=== PATIENT | male | born 1990 | race Caucasian/White ===

== ENCOUNTER 2016-05-23 17:44 | Emergency (ER) | payer OTHER ==
[2016-05-23] MEDS ORDERED: GASTROGRAFIN SOLUTION 30ML (Q9963) As Ordered ONE (18:38)
[2016-05-23 18:47] LABS: BASO % 0.4 % (0.0-1.0); EOS # 0.1 K/mm3 (0.0-0.50); EOS % 1.2 % (0.0-3.0); LARGE UNSTAINED CELL # 0.1 K/mm3 (0.0-0.4); LARGE UNSTAINED CELL % 1.6 % (0.0-4.0); LYMPH # 1.2 K/mm3 (1.5-6.5); MEAN CORPUSCULAR HEMOGLOBIN 27.8 pg (27.0-33.0); MEAN CORPUSCULAR HGB CONC 32.2 g/dl (32.0-36.5); MEAN CORPUSCULAR VOLUME 86.2 fl (80.0-96.0); MONO # 0.2 K/mm3 (0.0-0.8); MONO % 3.2 % (0.0-5.0); NEUTROPHILS # 5.6 K/mm3 (1.8-7.7); NEUTROPHILS % 77.6 % (36.0-66.0); PLATELET COUNT, AUTOMATED 676 k/mm3 (150-450); RED CELL DISTRIBUTION WIDTH 14.2 % (11.5-14.5); WHITE BLOOD COUNT 7.2 K/mm3 (4.0-10.0)
[2016-05-23 19:08] LABS: ANION GAP 9 MEQ/L (8-16); BLOOD UREA NITROGEN 11 MG/DL (7-18); CALCIUM LEVEL 9.1 MG/DL (8.5-10.1); CARBON DIOXIDE LEVEL 31 MEQ/L (21-32); CHLORIDE LEVEL 101 MEQ/L (98-107); CREATININE FOR GFR 0.86 MG/DL (0.70-1.30); GLOMERULAR FILTRATION RATE > 60.0 (>60); GLUCOSE, FASTING 92 MG/DL (70-105); POTASSIUM SERUM 4.3 MEQ/L (3.5-5.1); SODIUM LEVEL 141 MEQ/L (136-145)
[2016-05-23] MEDS ORDERED: ISOVUE-370 76% 100ML VIAL (Q9967) As Ordered ONE (20:25)
--- NOTE | 2016-05-23 21:00 | REPUSA ---
CT of the abdomen and pelvis with contrast Clinical statement: wound dehiscience. Technique: Multiple axial CT images were obtained from the base of the lungs through the floor of the pelvis utilizing 5 mm axial slices after administration of oral and nonionic intravenous contrast. C oronal and sagittal reconstructions were also obtained. No comparison is available. Findings: Chest: The visualized lung bases are clear. Abdomen: The liver, spleen, pancreas, kidneys, gallbladder, and adrenal glands are unremarkable. The aorta is within normal limits. There is no evidence of abdominal lymphadenopathy or ascites. The midl ine surgical wound at the region of the umbilicus is noted with a tiny amount of fluid. No evidence o f the dehiscience is appreciated. No discrete mass or loculated fluid collection is identified. There is a tiny area of low attenuation within the midline rectal sheath in the lower abdomen measuring up to 3.7 x 1.1 cm, likely representing postsurgical hematoma. Pelvis: Moderate amount of stool fills the colon.The bowel is otherwise unremarkable, with no obstruc tive or inflammatory changes. The appendix is normal. The urinary bladder is within normal limits. Th e other pelvic structures appear grossly intact. There is no evidence of pelvic lymphadenopathy or as cites. Bones: There are no suspicious osseous abnormalities seen. Impression: 1. Normal postsurgical changes demonstrated in the midline of the abdomen. Small postsurgical low att enuation collections are consistent with normal hematomas. No evidence of dehiscience. No evidence of abscess. Surgical clips are seen anteriorly. 2. Mild constipation. No obstructive or inflammatory bowel changes.
[2016-05-23] MEDS ORDERED: CEPHALEXIN 500 MG CAP As Ordered ONE (21:49)
--- NOTE | 2016-05-23 22:12 | EDDOCDS ---
Physician Documentation [facility] Name: Malcolm Perez Age: 25 yrs Sex: Male : 1990 Arrival Date: 05/23/2016 Time: 17:44 Bed I5 / M5 Private MD: Andrey Molina [facility] Disposition: 05/23/16 22:00 Discharged to Home/Self Care. Impression: Disruption of wound, unspecified - STAPLE LINE DEHISCENCE, Cellulitis, unspecified. - Condition is Stable. - Discharge Instructions: Cellulitis, Wound Dehiscence. - Prescriptions for Keflex 500 mg Oral Capsule - take 1 capsule by ORAL route every 6 hours for 10 days; 40 capsule. - Medication Reconciliation, Local Pharmacy Hours form. - Follow up: Private Physician; When: Tomorrow; Reason: Recheck today's complaints, Continuance of care. - Problem is new. - Symptoms have improved. - Notes: FOLLOW UP WITH DR UGALDE TOMORROW PREVIOUSLY INSTRUCTED, USE KELFEX INSTRUCTED, RETURN TO THE ER IF THE SYMPTOMS WORSE OR BECOME CONCERNING Historical: - Allergies: Lortab; - Home Meds: 1. morphine 30 mg Oral cap as needed pt has been using approx 2 x/day for Severe Pain (Last dose: 05/23/2016 17:15) 2. Colace 100 mg oral cap once daily (Last dose: 05/23/2016) 3. ibuprofen 400 mg Oral tab (Last dose: 05/22/2016) - PMHx: colon CA; - PSHx: ostomy reversal; colectomy?; - Social history: Smoking status: Patient states was never smoker of tobacco. Patient/guardian denies using alcohol, street drugs, No barriers to communication noted, The patient speaks fluent Iranian, Speaks appropriately for age. - Family history: Not pertinent. - : The pt / caregiver states he / she is not on anticoagulants. Home medication list is obtained from the patient. - Exposure Risk Screening:: None identified. Vital Signs: 05/23 17:49 BP 158 / 73 RA Sitting (auto/reg); Pulse 89; Resp 18; Temp 98.2; Pulse Ox 97% on R/A; jrd Weight 79.83 kg / 176 lbs (R); Height 5 ft. 11 in. (180.34 cm) (R); Pain 3/10; 22:10 BP 125 / 78; Pulse 78; Resp 18; Temp 98(T); Pulse Ox 99% on R/A; Pain 0/10; rs3 17:49 Body Mass Index 24.55 (79.83 kg, 180.34 cm) jrd MDM: 18:27 -Blood Culture (Adults Only), peripheral from different site, or from device/port/PICC ck7 etc. if present ordered. 18:27 IV Saline Lock ordered. ck7 18:27 NS 0.9% 1000 ml IV at bolus once ordered. ck7 18:28 CBC with Diff Ordered. EDMS 18:28 MED Profile Ordered. EDMS 18:28 -Blood Culture Ordered. EDMS 18:28 Wound Culture - All Other Sources Ordered. EDMS 18:28 CT ABD & PELVIS: IV and Oral Contrast Ordered. EDMS 18:28 -Blood Culture (Adults Only), peripheral from different site, or from device/port/PICC ar3 etc. if present complete. 18:30 BLOOD CULTURES Ordered. EDMS 18:37 Diatrizoate Meglumine & Sodium Liquid 10 ml PO once; mix in 290cc of water, 1st cup \T\ rs3 6.50 pm 2nd cup \T\7.20pm ordered. 19:45 Financial registration complete. zo 20:10 [facility] Payment Agreement was scanned into [employer] and attached to record. zo 21:14 CBC with Diff Reviewed. ck7 21:14 MED Profile Reviewed. ck7 21:41 CT ABD & PELVIS: IV and Oral Contrast Reviewed. ck7 21:41 Cephalexin 500 mg PO once ordered. ck7 21:42 Dressing ordered. ck7 Administered Medications: 18:43 Drug: NS 0.9% 1000 ml [sodium chloride 0.9 % intravenous solution] Route: IV; Rate: rs3 bolus; Site: left antecubital; 18:43 Drug: Diatrizoate Meglumine & Sodium 10 ml [diatrizoate meglumine and diat.sodium 66 rs3 %-10 % oral solution (10 mL)] Route: PO; 21:56 Drug: Cephalexin 500 mg [cephalexin 250 mg capsule (2 caps)] Route: PO; rs3 Signatures: Dispatcher [employer] EDMS Chao Alvarez Rosemary, RN RN rs3 Urszula Méndez PCA BARREL RIB MATTING MACHINE OPERATOR ar3 Julio C Steel, RPA-C RPA-Cck7 Shirley Macedo, RN RN ttb The chart was reviewed and I authenticate all verbal orders and agree with the evaluation and treatment provided.Attachments: 20:10 [facility] Payment Agreement zo MTDD
--- NOTE | 2016-05-23 22:12 | EDDOCDS ---
Nurse's Notes [facility] Name: Malcolm Perez Age: 25 yrs Sex: Male : 1990 Arrival Date: 05/23/2016 Time: 17:44 Bed I5 / M5 Private MD: Andrey Molina [facility] Diagnosis: Disruption of wound, unspecified-STAPLE LINE DEHISCENCE;Cellulitis, unspecified Presentation: 05/23 17:52 Presenting complaint: Patient states: abd surgery at [facility] on 05/06 -- discharged from [facility] approx 2 weeks ago -- 1st f/u tomorrow in office. Pt concerned with the appearance of lloyd at this time. States there is discharge. Adult Sepsis Screening: The patient does not have new or worsening altered mentation. Patient's respiratory rate is less than 22. Systolic blood pressure is greater than 100. Patient has a qSOFA score of 0- Negative Sepsis Screen. Suicide/Homicide risk assessment- the patient denies having any suicidal and/or homicidal ideations and does not present with any other emotional, behavioral or mental health complaints. 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 Transition of care: patient was not received from another setting of care. 17:52 Acuity: BRUNILDA Level 3 ttb 17:52 Method Of Arrival: Walkin/Carried/Asstd ttb 18:05 Presenting complaint: upon inspection, small area noted distal to umbilicus with fluid ttb filled sac. Approx 1cm. Fluid appears clear mainly. Surrounding tissue appears healthy, no erythema noted. Triage Assessment: 17:58 General: Appears in no apparent distress, well nourished, well groomed, Behavior is ttb appropriate for age, cooperative, flat, pleasant, quiet. Pain: Location: abd 06/04. HIV screening NA for this visit Offered previously. Neurological: Level of Consciousness is awake, alert. Cardiovascular: Chest pain is denied. Respiratory: No deficits noted. Airway is patent Respiratory effort is even, unlabored. GI: other pt states large surgical incision to abd Reports tolerance of food, tolerance of fluids, Denies vomiting. Derm: Skin is normal. Injury Description: surgical site. Historical: - Allergies: Lortab; - Home Meds: 1. morphine 30 mg Oral cap as needed pt has been using approx 2 x/day for Severe Pain (Last dose: 05/23/2016 17:15) 2. Colace 100 mg oral cap once daily (Last dose: 05/23/2016) 3. ibuprofen 400 mg Oral tab (Last dose: 05/22/2016) - PMHx: colon CA; - PSHx: ostomy reversal; colectomy?; - Social history: Smoking status: Patient states was never smoker of tobacco. Patient/guardian denies using alcohol, street drugs, No barriers to communication noted, The patient speaks fluent North Korean, Speaks appropriately for age. - Family history: Not pertinent. - : The pt / caregiver states he / she is not on anticoagulants. Home medication list is obtained from the patient. - Exposure Risk Screening:: None identified. Screenin:52 Screening information is obtained from the patient. Fall risk: No risks identified. dy Assistance ADL's: requires no assistance with activities of daily living. Abuse/DV Screen: The patient / caregiver reports he/she is: not in a situation that causes fear, pain or injury. Nutritional screening: No deficits noted. Advance Directives: Currently, there is no health care proxy. home support is adequate. Assessment: 18:50 General: Appears in no apparent distress, Behavior is appropriate for age, cooperative. dy Pain: Location: abdomen Pain currently is 3 out of 10 on a pain scale. Neurological: No deficits noted. Respiratory: Airway is patent Respiratory effort is even, unlabored. GI: Abdomen is flat, non- distended midline surgical scar stapled full length of abdomen into suprapubic area. purulent drainage noted just below umbilicus. left lower 7.5-10 cm stapled surgical wound without redness or drainage noted. 19:58 General: Appears in no apparent distress, Behavior is appropriate for age, cooperative, rs3 sits up on stretcher texting on his phone. denies of acute distress/pain. waiting for CT scan. completed oral contrast. tolerating well. IVF NS bolus infusing. 20:44 General: Appears in no apparent distress, Behavior is appropriate for age, cooperative, rs3 patient returned from CT. tolerated procedure well. waiting on test results. . 21:56 General: Appears in no apparent distress, resting comfortable. denies of pain/distress. rs3 friend at bedside. wet dressing applied. . 22:09 Reassessment: Patient appears in no apparent distress at this time. Patient denies pain rs3 at this time. Patient states feeling better. Patient states symptoms have improved. Vital Signs: 17:49 BP 158 / 73 RA Sitting (auto/reg); Pulse 89; Resp 18; Temp 98.2; Pulse Ox 97% on R/A; jrd Weight 79.83 kg (R); Height 5 ft. 11 in. (180.34 cm) (R); Pain 3/10; 22:10 BP 125 / 78; Pulse 78; Resp 18; Temp 98(T); Pulse Ox 99% on R/A; Pain 0/10; rs3 17:49 Body Mass Index 24.55 (79.83 kg, 180.34 cm) [facility] Vitals: 17:49 Log In Time: May 23, 2016 at 17:44. [facility] ED Course: 17:46 Patient visited by Luis Manuel Rod PCA. jrd 17:46 Patient moved to Waiting jrd 17:48 [place], [facility] is Private Physician. jrd 17:50 Patient visited by Luis Manuel Rod PCA. jrd 17:50 Patient moved to Pre RCE jrd 17:54 Triage Initiated ttb 17:59 Patient moved to Triage 3 ttb 18:15 Julio C Steel [facility] ck7 18:15 Arturo Lowe MD is Attending Physician. ck7 18:15 Patient visited by Julio C Steel RPA-C. ck7 18:29 Patient moved to I5 / M5 ar3 18:41 The patient / caregiver is instructed regarding the plan of care and ED course. Patient dy has correct armband on for positive identification. Placed in gown. Bed in low position. Call light in reach. Side rails up X 1. 18:41 Wound Culture - All Other Sources Sent. dy 18:41 -Blood Culture Sent. dy 18:41 MED Profile Sent. dy 18:41 CBC with Diff Sent. dy 18:41 Inserted saline lock: 20 gauge in left antecubital area and blood collected. The dy patient tolerated the procedure well. Labs/Blood culture drawn Wound culture sent to lab. 18:44 BLOOD CULTURES Sent. jlm 18:47 Patient visited by Gloria Cope, Leather Grainer. jl 19:23 Patient visited by Julio C Steel RPA-C. ck7 19:57 Patient visited by Julio C Steel RPA-C. ck7 20:10 [facility] Payment Agreement was scanned into [employer] and attached to record. zo 20:44 Patient visited by Nelsy Diamond RN. rs3 21:14 Patient visited by Julio C Steel RPA-C. ck7 21:25 CT ABD & PELVIS: IV and Oral Contrast Returned. EDMS 22:00 Patient visited by Nelsy Diamond RN. rs3 22:10 Discontinued lock bleeding controlled, pressure dressing applied, No redness/swelling rs3 at site. No procedures done that require assistance. Administered Medications: 18:43 Drug: NS 0.9% 1000 ml [sodium chloride 0.9 % intravenous solution] Route: IV; Rate: rs3 bolus; Site: left antecubital; 18:43 Drug: Diatrizoate Meglumine & Sodium 10 ml [diatrizoate meglumine and diat.sodium 66 rs3 %-10 % oral solution (10 mL)] Route: PO; 21:56 Drug: Cephalexin 500 mg [cephalexin 250 mg capsule (2 caps)] Route: PO; rs3 Order Results: Lab Order: CBC with Diff; SPEC'M 05/23/16 18:32 Test: WHITE BLOOD COUNT; Value: 7.2; Range: 4.0-10.0; Units: K/mm3; Status: F Test: RED BLOOD COUNT; Value: 4.53; Range: 4.30-6.10; Units: M/mm3; Status: F Test: HEMOGLOBIN; Value: 12.6; Range: 14.0-18.0; Abnormal: Below low normal; Units: g/dl; Status: F Test: HEMATOCRIT; Value: 39.1; Range: 42.0-52.0; Abnormal: Below low normal; Units: %; Status: F Test: MEAN CORPUSCULAR VOLUME; Value: 86.2; Range: 80.0-96.0; Units: fl; Status: F Test: MEAN CORPUSCULAR HEMOGLOBIN; Value: 27.8; Range: 27.0-33.0; Units: pg; Status: F Test: MEAN CORPUSCULAR HGB CONC; Value: 32.2; Range: 32.0-36.5; Units: g/dl; Status: F Test: RED CELL DISTRIBUTION WIDTH; Value: 14.2; Range: 11.5-14.5; Units: %; Status: F Test: PLATELET COUNT, AUTOMATED; Value: 676; Range: 150-450; Abnormal: Above high normal; Units: k/mm3; Status: F Test: NEUTROPHILS %; Value: 77.6; Range: 36.0-66.0; Abnormal: Above high normal; Units: %; Status: F Test: LYMPH %; Value: 16.0; Range: 24.0-44.0; Abnormal: Below low normal; Units: %; Status: F Test: MONO %; Value: 3.2; Range: 0.0-5.0; Units: %; Status: F Test: EOS %; Value: 1.2; Range: 0.0-3.0; Units: %; Status: F Test: BASO %; Value: 0.4; Range: 0.0-1.0; Units: %; Status: F Test: LARGE UNSTAINED CELL %; Value: 1.6; Range: 0.0-4.0; Units: %; Status: F Test: NEUTROPHILS #; Value: 5.6; Range: 1.8-7.7; Units: K/mm3; Status: F Test: LYMPH #; Value: 1.2; Range: 1.5-6.5; Abnormal: Below low normal; Units: K/mm3; Status: F Test: MONO #; Value: 0.2; Range: 0.0-0.8; Units: K/mm3; Status: F Test: EOS #; Value: 0.1; Range: 0.0-0.50; Units: K/mm3; Status: F Test: BASO #; Value: 0.0; Range: 0.0-0.2; Units: K/mm3; Status: F Test: LARGE UNSTAINED CELL #; Value: 0.1; Range: 0.0-0.4; Units: K/mm3; Status: F Lab Order: MED Profile; SPEC'M 05/23/16 18:32 Test: GLUCOSE, FASTING; Value: 92; Range: 70-105; Units: MG/DL; Status: F Test: BLOOD UREA NITROGEN; Value: 11; Range: 7-18; Units: MG/DL; Status: F Test: CREATININE FOR GFR; Value: 0.86; Range: 0.70-1.30; Units: MG/DL; Status: F Test: GLOMERULAR FILTRATION RATE; Value: > 60.0; Range: >60; Status: F Test: SODIUM LEVEL; Value: 141; Range: 136-145; Units: MEQ/L; Status: F Test: POTASSIUM SERUM; Value: 4.3; Range: 3.5-5.1; Units: MEQ/L; Status: F Test: CHLORIDE LEVEL; Value: 101; Range: 98-107; Units: MEQ/L; Status: F Test: CARBON DIOXIDE LEVEL; Value: 31; Range: 21-32; Units: MEQ/L; Status: F Test: ANION GAP; Value: 9; Range: 8-16; Units: MEQ/L; Status: F Test: CALCIUM LEVEL; Value: 9.1; Range: 8.5-10.1; Units: MG/DL; Status: F Test Note: ; Units are mL/min/1.73 m2 Chronic Kidney Disease Staging per NKF: Stage I & II GFR >=60 Normal to Mildly Decreased Stage III GFR 30-59 Moderately Decreased Stage IV GFR 15-29 Severely Decreased Stage V GFR <15 Very Little GFR Left ESRD GFR <15 on MASH TUB COOKER OPERATOR Radiology Order: CT ABD & PELVIS: IV and Oral Contrast Test: CT ABD & PELVIS: IV and Oral Contrast REASON FOR EXAMINATION: WOUND DEHISCENSE R/O ABSCESS; ; CT of the abdomen and pelvis with contrast; Clinical statement: wound dehiscience.; Technique: Multiple axial CT images were obtained from the base of the lungs through the floor of the; pelvis utilizing 5 mm axial slices after administration of oral and nonionic intravenous contrast. C; oronal and sagittal reconstructions were also obtained.; No comparison is available.; Findings:; Chest: The visualized lung bases are clear.; Abdomen: The liver, spleen, pancreas, kidneys, gallbladder, and adrenal glands are unremarkable. The; aorta is within normal limits. There is no evidence of abdominal lymphadenopathy or ascites. The midl; ine surgical wound at the region of the umbilicus is noted with a tiny amount of fluid. No evidence o; f the dehiscience is appreciated. No discrete mass or loculated fluid collection is identified. There; is a tiny area of low attenuation within the midline rectal sheath in the lower abdomen measuring up; to 3.7 x 1.1 cm, likely representing postsurgical hematoma.; Pelvis: Moderate amount of stool fills the colon.The bowel is otherwise unremarkable, with no obstruc; tive or inflammatory changes. The appendix is normal. The urinary bladder is within normal limits. Th; e other pelvic structures appear grossly intact. There is no evidence of pelvic lymphadenopathy or as; cites.; Bones: There are no suspicious osseous abnormalities seen.; Impression:; 1. Normal postsurgical changes demonstrated in the midline of the abdomen. Small postsurgical low att; enuation collections are consistent with normal hematomas. No evidence of dehiscience. No evidence of; abscess. Surgical clips are seen anteriorly.; 2. Mild constipation. No obstructive or inflammatory bowel changes.; ; ; Outcome: 22:00 Discharge ordered by Provider. ck7 22:09 Discharge Assessment: patient administered narcotics - no. The following High Risk rs3 Discharge criteria are identified: None. Discharged to home with friend. Condition: stable. Discharge instructions given to patient, Instructed on discharge instructions, follow up and referral plans. medication usage, Demonstrated understanding of instructions, medications, Pt was receptive of discharge instructions/ teaching. Prescriptions given X 1. CT Study completed. Property :Personal belongings accompany Pt. 22:11 Patient left the ED. rs3 Signatures: Dispatcher [employer] EDMS Enrique Burnham RN RN dy Olin, Zoeann zo Soosairaj, Rosemary, RN RN rs3 Urszula Méndez, DIRECTOR ELECTRICAL ENGINEERING DIRECTOR ELECTRICAL ENGINEERING ar3 Julio C Steel, RPA-C RPA-Cck7 Shirley Macedo RN RN ttb Mitchell, Jessie, Leather Grainer Unit jlLuis Manuel Gray, DIRECTOR ELECTRICAL ENGINEERING DIRECTOR ELECTRICAL ENGINEERING jrd [facility]
--- NOTE | 2016-05-25 23:12 | EDDOCDS ---
Nurse's Notes [facility] Name: Malcolm Perez Age: 25 yrs Sex: Male : 1990 Arrival Date: 05/23/2016 Time: 17:44 Bed I5 / M5 Private MD: Andrey Molina [facility] Diagnosis: Disruption of wound, unspecified-STAPLE LINE DEHISCENCE;Cellulitis, unspecified Presentation: 05/23 17:52 Presenting complaint: Patient states: abd surgery at [facility] on 05/06 -- discharged from [facility] approx 2 weeks ago -- 1st f/u tomorrow in office. Pt concerned with the appearance of lloyd at this time. States there is discharge. Adult Sepsis Screening: The patient does not have new or worsening altered mentation. Patient's respiratory rate is less than 22. Systolic blood pressure is greater than 100. Patient has a qSOFA score of 0- Negative Sepsis Screen. Suicide/Homicide risk assessment- the patient denies having any suicidal and/or homicidal ideations and does not present with any other emotional, behavioral or mental health complaints. 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 Transition of care: patient was not received from another setting of care. 17:52 Acuity: BRUNILDA Level 3 ttb 17:52 Method Of Arrival: Walkin/Carried/Asstd ttb 18:05 Presenting complaint: upon inspection, small area noted distal to umbilicus with fluid ttb filled sac. Approx 1cm. Fluid appears clear mainly. Surrounding tissue appears healthy, no erythema noted. Triage Assessment: 17:58 General: Appears in no apparent distress, well nourished, well groomed, Behavior is ttb appropriate for age, cooperative, flat, pleasant, quiet. Pain: Location: abd 06/04. HIV screening NA for this visit Offered previously. Neurological: Level of Consciousness is awake, alert. Cardiovascular: Chest pain is denied. Respiratory: No deficits noted. Airway is patent Respiratory effort is even, unlabored. GI: other pt states large surgical incision to abd Reports tolerance of food, tolerance of fluids, Denies vomiting. Derm: Skin is normal. Injury Description: surgical site. Historical: - Allergies: Lortab; - Home Meds: 1. morphine 30 mg Oral cap as needed pt has been using approx 2 x/day for Severe Pain (Last dose: 05/23/2016 17:15) 2. Colace 100 mg oral cap once daily (Last dose: 05/23/2016) 3. ibuprofen 400 mg Oral tab (Last dose: 05/22/2016) - PMHx: colon CA; - PSHx: ostomy reversal; colectomy?; - Social history: Smoking status: Patient states was never smoker of tobacco. Patient/guardian denies using alcohol, street drugs, No barriers to communication noted, The patient speaks fluent Latvian, Speaks appropriately for age. - Family history: Not pertinent. - : The pt / caregiver states he / she is not on anticoagulants. Home medication list is obtained from the patient. - Exposure Risk Screening:: None identified. Screenin:52 Screening information is obtained from the patient. Fall risk: No risks identified. dy Assistance ADL's: requires no assistance with activities of daily living. Abuse/DV Screen: The patient / caregiver reports he/she is: not in a situation that causes fear, pain or injury. Nutritional screening: No deficits noted. Advance Directives: Currently, there is no health care proxy. home support is adequate. Assessment: 18:50 General: Appears in no apparent distress, Behavior is appropriate for age, cooperative. dy Pain: Location: abdomen Pain currently is 3 out of 10 on a pain scale. Neurological: No deficits noted. Respiratory: Airway is patent Respiratory effort is even, unlabored. GI: Abdomen is flat, non- distended midline surgical scar stapled full length of abdomen into suprapubic area. purulent drainage noted just below umbilicus. left lower 7.5-10 cm stapled surgical wound without redness or drainage noted. 19:58 General: Appears in no apparent distress, Behavior is appropriate for age, cooperative, rs3 sits up on stretcher texting on his phone. denies of acute distress/pain. waiting for CT scan. completed oral contrast. tolerating well. IVF NS bolus infusing. 20:44 General: Appears in no apparent distress, Behavior is appropriate for age, cooperative, rs3 patient returned from CT. tolerated procedure well. waiting on test results. . 21:56 General: Appears in no apparent distress, resting comfortable. denies of pain/distress. rs3 friend at bedside. wet dressing applied. . 22:09 Reassessment: Patient appears in no apparent distress at this time. Patient denies pain rs3 at this time. Patient states feeling better. Patient states symptoms have improved. Vital Signs: 17:49 BP 158 / 73 RA Sitting (auto/reg); Pulse 89; Resp 18; Temp 98.2; Pulse Ox 97% on R/A; jrd Weight 79.83 kg (R); Height 5 ft. 11 in. (180.34 cm) (R); Pain 3/10; 22:10 BP 125 / 78; Pulse 78; Resp 18; Temp 98(T); Pulse Ox 99% on R/A; Pain 0/10; rs3 17:49 Body Mass Index 24.55 (79.83 kg, 180.34 cm) [facility] Vitals: 17:49 Log In Time: May 23, 2016 at 17:44. [facility] ED Course: 17:46 Patient visited by Luis Manuel Rod PCA. jrd 17:46 Patient moved to Waiting jrd 17:48 [place], [facility] is Private Physician. jrd 17:50 Patient visited by Luis Manuel Rod PCA. jrd 17:50 Patient moved to Pre RCE jrd 17:54 Triage Initiated ttb 17:59 Patient moved to Triage 3 ttb 18:15 Julio C Steel R[facility]-C [facility] ck7 18:15 Arturo Lowe MD is Attending Physician. ck7 18:15 Patient visited by Julio C Steel RPA-C. ck7 18:29 Patient moved to I5 / M5 ar3 18:41 The patient / caregiver is instructed regarding the plan of care and ED course. Patient dy has correct armband on for positive identification. Placed in gown. Bed in low position. Call light in reach. Side rails up X 1. 18:41 Wound Culture - All Other Sources Sent. dy 18:41 -Blood Culture Sent. dy 18:41 MED Profile Sent. dy 18:41 CBC with Diff Sent. dy 18:41 Inserted saline lock: 20 gauge in left antecubital area and blood collected. The dy patient tolerated the procedure well. Labs/Blood culture drawn Wound culture sent to lab. 18:44 BLOOD CULTURES Sent. jlm 18:47 Patient visited by Gloria Cope, Can Maker. jl 19:23 Patient visited by Julio C Steel RPA-C. ck7 19:57 Patient visited by Julio C Steel RPA-C. ck7 20:10 [facility] Payment Agreement was scanned into [employer]redUP and attached to record. zo 20:44 Patient visited by Nelsy Diamond RN. rs3 21:14 Patient visited by Julio C Steel RPA-C. ck7 21:25 CT ABD & PELVIS: IV and Oral Contrast Returned. EDMS 22:00 Patient visited by Nelsy Diamond RN. rs3 22:10 Discontinued lock bleeding controlled, pressure dressing applied, No redness/swelling rs3 at site. No procedures done that require assistance. 05/24 09:15 T-Sheet-- Draft Copy was scanned into [employer]UP and attached to record. gb Administered Medications: 05/23 18:43 Drug: NS 0.9% 1000 ml [sodium chloride 0.9 % intravenous solution] Route: IV; Rate: rs3 bolus; Site: left antecubital; 18:43 Drug: Diatrizoate Meglumine & Sodium 10 ml [diatrizoate meglumine and diat.sodium 66 rs3 %-10 % oral solution (10 mL)] Route: PO; 21:56 Drug: Cephalexin 500 mg [cephalexin 250 mg capsule (2 caps)] Route: PO; rs3 Order Results: Lab Order: CBC with Diff; SPEC'M 05/23/16 18:32 Test: WHITE BLOOD COUNT; Value: 7.2; Range: 4.0-10.0; Units: K/mm3; Status: F Test: RED BLOOD COUNT; Value: 4.53; Range: 4.30-6.10; Units: M/mm3; Status: F Test: HEMOGLOBIN; Value: 12.6; Range: 14.0-18.0; Abnormal: Below low normal; Units: g/dl; Status: F Test: HEMATOCRIT; Value: 39.1; Range: 42.0-52.0; Abnormal: Below low normal; Units: %; Status: F Test: MEAN CORPUSCULAR VOLUME; Value: 86.2; Range: 80.0-96.0; Units: fl; Status: F Test: MEAN CORPUSCULAR HEMOGLOBIN; Value: 27.8; Range: 27.0-33.0; Units: pg; Status: F Test: MEAN CORPUSCULAR HGB CONC; Value: 32.2; Range: 32.0-36.5; Units: g/dl; Status: F Test: RED CELL DISTRIBUTION WIDTH; Value: 14.2; Range: 11.5-14.5; Units: %; Status: F Test: PLATELET COUNT, AUTOMATED; Value: 676; Range: 150-450; Abnormal: Above high normal; Units: k/mm3; Status: F Test: NEUTROPHILS %; Value: 77.6; Range: 36.0-66.0; Abnormal: Above high normal; Units: %; Status: F Test: LYMPH %; Value: 16.0; Range: 24.0-44.0; Abnormal: Below low normal; Units: %; Status: F Test: MONO %; Value: 3.2; Range: 0.0-5.0; Units: %; Status: F Test: EOS %; Value: 1.2; Range: 0.0-3.0; Units: %; Status: F Test: BASO %; Value: 0.4; Range: 0.0-1.0; Units: %; Status: F Test: LARGE UNSTAINED CELL %; Value: 1.6; Range: 0.0-4.0; Units: %; Status: F Test: NEUTROPHILS #; Value: 5.6; Range: 1.8-7.7; Units: K/mm3; Status: F Test: LYMPH #; Value: 1.2; Range: 1.5-6.5; Abnormal: Below low normal; Units: K/mm3; Status: F Test: MONO #; Value: 0.2; Range: 0.0-0.8; Units: K/mm3; Status: F Test: EOS #; Value: 0.1; Range: 0.0-0.50; Units: K/mm3; Status: F Test: BASO #; Value: 0.0; Range: 0.0-0.2; Units: K/mm3; Status: F Test: LARGE UNSTAINED CELL #; Value: 0.1; Range: 0.0-0.4; Units: K/mm3; Status: F Lab Order: MED Profile; SPEC'M 05/23/16 18:32 Test: GLUCOSE, FASTING; Value: 92; Range: 70-105; Units: MG/DL; Status: F Test: BLOOD UREA NITROGEN; Value: 11; Range: 7-18; Units: MG/DL; Status: F Test: CREATININE FOR GFR; Value: 0.86; Range: 0.70-1.30; Units: MG/DL; Status: F Test: GLOMERULAR FILTRATION RATE; Value: > 60.0; Range: >60; Status: F Test: SODIUM LEVEL; Value: 141; Range: 136-145; Units: MEQ/L; Status: F Test: POTASSIUM SERUM; Value: 4.3; Range: 3.5-5.1; Units: MEQ/L; Status: F Test: CHLORIDE LEVEL; Value: 101; Range: 98-107; Units: MEQ/L; Status: F Test: CARBON DIOXIDE LEVEL; Value: 31; Range: 21-32; Units: MEQ/L; Status: F Test: ANION GAP; Value: 9; Range: 8-16; Units: MEQ/L; Status: F Test: CALCIUM LEVEL; Value: 9.1; Range: 8.5-10.1; Units: MG/DL; Status: F Test Note: ; Units are mL/min/1.73 m2 Chronic Kidney Disease Staging per NKF: Stage I & II GFR >=60 Normal to Mildly Decreased Stage III GFR 30-59 Moderately Decreased Stage IV GFR 15-29 Severely Decreased Stage V GFR <15 Very Little GFR Left ESRD GFR <15 on AUTOMATIC MOLD SANDER Lab Order: -Blood Culture; SPEC'M 05/23/16 18:32 Test: BLOOD CULTURE; Value: No growth after 24 hours . All specimens observed; Status: F Test: BLOOD CULTURE; Value: for 5 days. Results final at that time.; Status: F Test: BLOOD CULTURE; Value: No Growth after 48 hours. All Specimens observed; Status: F Test: BLOOD CULTURE; Value: for 7 days. Results final at that time.; Status: F Lab Order: Wound Culture - All Other Sources; SPEC'M 05/23/16 18:32 Test: WOUND CULTURE; Value: <EXTERNAL COMMENT eCWMed> FULL REPORT IN LAB NOTES (eCW and Medent).; Status: F Test: WOUND CULTURE; Value: ORGANISM 1: STAPHYLOCOCCUS AUREUS; Status: F Test: WOUND CULTURE; Value: STAPHYLOCOCCUS AUREUS; Status: F Test: WOUND CULTURE; Value: QUANTITY OF GROWTH HEAVY; Status: F Test: WOUND CULTURE; Value: GRAM POS SENSI - VITEK 67; Status: F Test: WOUND CULTURE; Value: Method: VIT2; Status: F Test: WOUND CULTURE; Value: TETRACYCLINE <=1 S; Status: F Test: WOUND CULTURE; Value: PENICILLIN G >=0.5 R; Status: F Test: WOUND CULTURE; Value: TRIMETHOPRIM/SULFAMETHOXAZOLE <=10 S; Status: F Test: WOUND CULTURE; Value: ERYTHROMYCIN <=0.25 S; Status: F Test: WOUND CULTURE; Value: GENTAMICIN <=0.5 S; Status: F Test: WOUND CULTURE; Value: CLINDAMYCIN <=0.25 S; Status: F Test: WOUND CULTURE; Value: OXACILLIN <=0.25 S; Status: F Test: WOUND CULTURE; Value: VANCOMYCIN 1 S; Status: F Test: WOUND CULTURE; Value: LINEZOLID (ZYVOX) 2 S; Status: F Lab Order: BLOOD CULTURES; SPEC'M 05/23/16 18:33 Test: BLOOD CULTURE; Value: No growth after 24 hours . All specimens observed; Status: F Test: BLOOD CULTURE; Value: for 5 days. Results final at that time.; Status: F Test: BLOOD CULTURE; Value: No Growth after 48 hours. All Specimens observed; Status: F Test: BLOOD CULTURE; Value: for 7 days. Results final at that time.; Status: F Radiology Order: CT ABD & PELVIS: IV and Oral Contrast Test: CT ABD & PELVIS: IV and Oral Contrast REASON FOR EXAMINATION: WOUND DEHISCENSE R/O ABSCESS; ; CT of the abdomen and pelvis with contrast; Clinical statement: wound dehiscience.; Technique: Multiple axial CT images were obtained from the base of the lungs through the floor of the; pelvis utilizing 5 mm axial slices after administration of oral and nonionic intravenous contrast. C; oronal and sagittal reconstructions were also obtained.; No comparison is available.; Findings:; Chest: The visualized lung bases are clear.; Abdomen: The liver, spleen, pancreas, kidneys, gallbladder, and adrenal glands are unremarkable. The; aorta is within normal limits. There is no evidence of abdominal lymphadenopathy or ascites. The midl; ine surgical wound at the region of the umbilicus is noted with a tiny amount of fluid. No evidence o; f the dehiscience is appreciated. No discrete mass or loculated fluid collection is identified. There; is a tiny area of low attenuation within the midline rectal sheath in the lower abdomen measuring up; to 3.7 x 1.1 cm, likely representing postsurgical hematoma.; Pelvis: Moderate amount of stool fills the colon.The bowel is otherwise unremarkable, with no obstruc; tive or inflammatory changes. The appendix is normal. The urinary bladder is within normal limits. Th; e other pelvic structures appear grossly intact. There is no evidence of pelvic lymphadenopathy or as; cites.; Bones: There are no suspicious osseous abnormalities seen.; Impression:; 1. Normal postsurgical changes demonstrated in the midline of the abdomen. Small postsurgical low att; enuation collections are consistent with normal hematomas. No evidence of dehiscience. No evidence of; abscess. Surgical clips are seen anteriorly.; 2. Mild constipation. No obstructive or inflammatory bowel changes.; ; ; Outcome: 22:00 Discharge ordered by Provider. ck7 22:09 Discharge Assessment: patient administered narcotics - no. The following High Risk rs3 Discharge criteria are identified: None. Discharged to home with friend. Condition: stable. Discharge instructions given to patient, Instructed on discharge instructions, follow up and referral plans. medication usage, Demonstrated understanding of instructions, medications, Pt was receptive of discharge instructions/ teaching. Prescriptions given X 1. CT Study completed. Property :Personal belongings accompany Pt. 22:11 Patient left the ED. rs3 Signatures: Dispatcher [employer] EDMS Stefany Rivers, Reg Reg Enrique Barfield, RN RN Chao Varghese Rosemary, RN RN rs3 Urszula Méndez, POLICE SERGEANT POLICE SERGEANT ar3 Julio C Steel, RPA-C RPA-Cck7 Shirley Macedo RN RN ttb Mitchell, Jessie, Can Maker Unit m Luis Manuel Rod, POLICE SERGEANT POLICE SERGEANT jrd Chart Complete MTDD
--- NOTE | 2016-05-25 23:12 | EDDOCDS ---
Physician Documentation [facility] Name: Malcolm Perez Age: 25 yrs Sex: Male : 1990 Arrival Date: 05/23/2016 Time: 17:44 Bed I5 / M5 Private MD: Andrey Molina [facility] Disposition: 05/23/16 22:00 Discharged to Home/Self Care. Impression: Disruption of wound, unspecified - STAPLE LINE DEHISCENCE, Cellulitis, unspecified. - Condition is Stable. - Discharge Instructions: Cellulitis, Wound Dehiscence. - Prescriptions for Keflex 500 mg Oral Capsule - take 1 capsule by ORAL route every 6 hours for 10 days; 40 capsule. - Medication Reconciliation, Local Pharmacy Hours form. - Follow up: Private Physician; When: Tomorrow; Reason: Recheck today's complaints, Continuance of care. - Problem is new. - Symptoms have improved. - Notes: FOLLOW UP WITH DR UGALDE TOMORROW PREVIOUSLY INSTRUCTED, USE KELFEX INSTRUCTED, RETURN TO THE ER IF THE SYMPTOMS WORSE OR BECOME CONCERNING Historical: - Allergies: Lortab; - Home Meds: 1. morphine 30 mg Oral cap as needed pt has been using approx 2 x/day for Severe Pain (Last dose: 05/23/2016 17:15) 2. Colace 100 mg oral cap once daily (Last dose: 05/23/2016) 3. ibuprofen 400 mg Oral tab (Last dose: 05/22/2016) - PMHx: colon CA; - PSHx: ostomy reversal; colectomy?; - Social history: Smoking status: Patient states was never smoker of tobacco. Patient/guardian denies using alcohol, street drugs, No barriers to communication noted, The patient speaks fluent Kazakh, Speaks appropriately for age. - Family history: Not pertinent. - : The pt / caregiver states he / she is not on anticoagulants. Home medication list is obtained from the patient. - Exposure Risk Screening:: None identified. Vital Signs: 05/23 17:49 BP 158 / 73 RA Sitting (auto/reg); Pulse 89; Resp 18; Temp 98.2; Pulse Ox 97% on R/A; jrd Weight 79.83 kg / 176 lbs (R); Height 5 ft. 11 in. (180.34 cm) (R); Pain 3/10; 22:10 BP 125 / 78; Pulse 78; Resp 18; Temp 98(T); Pulse Ox 99% on R/A; Pain 0/10; rs3 17:49 Body Mass Index 24.55 (79.83 kg, 180.34 cm) jrd MDM: 18:27 -Blood Culture (Adults Only), peripheral from different site, or from device/port/PICC ck7 etc. if present ordered. 18:27 IV Saline Lock ordered. ck7 18:27 NS 0.9% 1000 ml IV at bolus once ordered. ck7 18:28 CBC with Diff Ordered. EDMS 18:28 MED Profile Ordered. EDMS 18:28 -Blood Culture Ordered. EDMS 18:28 Wound Culture - All Other Sources Ordered. EDMS 18:28 CT ABD & PELVIS: IV and Oral Contrast Ordered. EDMS 18:28 -Blood Culture (Adults Only), peripheral from different site, or from device/port/PICC ar3 etc. if present complete. 18:30 BLOOD CULTURES Ordered. EDMS 18:37 Diatrizoate Meglumine & Sodium Liquid 10 ml PO once; mix in 290cc of water, 1st cup \T\ rs3 6.50 pm 2nd cup \T\7.20pm ordered. 19:45 Financial registration complete. zo 20:10 [facility] Payment Agreement was scanned into [employer] and attached to record. zo 21:14 CBC with Diff Reviewed. ck7 21:14 MED Profile Reviewed. ck7 21:41 CT ABD & PELVIS: IV and Oral Contrast Reviewed. ck7 21:41 Cephalexin 500 mg PO once ordered. ck7 21:42 Dressing ordered. ck7 05/24 09:15 T-Sheet-- Draft Copy was scanned into [employer] and attached to record. gb Administered Medications: 05/23 18:43 Drug: NS 0.9% 1000 ml [sodium chloride 0.9 % intravenous solution] Route: IV; Rate: rs3 bolus; Site: left antecubital; 18:43 Drug: Diatrizoate Meglumine & Sodium 10 ml [diatrizoate meglumine and diat.sodium 66 rs3 %-10 % oral solution (10 mL)] Route: PO; 21:56 Drug: Cephalexin 500 mg [cephalexin 250 mg capsule (2 caps)] Route: PO; rs3 Signatures: Dispatcher [employer] EDMS Stefany Rivers, Reg Reg gb Antonio, Nelsy Christy,RN RN rs3 Urszula Méndez, CONSULTING PROJECT DIRECTOR CONSULTING PROJECT DIRECTOR ar3 Julio C Steel, RPA-C RPA-Cck7 Shirley Macedo RN RN ttb The chart was reviewed and I authenticate all verbal orders and agree with the evaluation and treatment provided.Attachments: 20:10 [facility] Payment Agreement zo 05/24 09:15 T-Sheet-- Draft Copy gb Chart Complete MTDD
--- NOTE | 2016-05-25 23:12 | EDDOCDS ---
Physician Documentation [facility] Name: Malcolm Perez Age: 25 yrs Sex: Male : 1990 Arrival Date: 05/23/2016 Time: 17:44 Bed I5 / M5 Private MD: Andrey Molina [facility] Disposition: 05/23/16 22:00 Discharged to Home/Self Care. Impression: Disruption of wound, unspecified - STAPLE LINE DEHISCENCE, Cellulitis, unspecified. - Condition is Stable. - Discharge Instructions: Cellulitis, Wound Dehiscence. - Prescriptions for Keflex 500 mg Oral Capsule - take 1 capsule by ORAL route every 6 hours for 10 days; 40 capsule. - Medication Reconciliation, Local Pharmacy Hours form. - Follow up: Private Physician; When: Tomorrow; Reason: Recheck today's complaints, Continuance of care. - Problem is new. - Symptoms have improved. - Notes: FOLLOW UP WITH DR UGALDE TOMORROW PREVIOUSLY INSTRUCTED, USE KELFEX INSTRUCTED, RETURN TO THE ER IF THE SYMPTOMS WORSE OR BECOME CONCERNING Historical: - Allergies: Lortab; - Home Meds: 1. morphine 30 mg Oral cap as needed pt has been using approx 2 x/day for Severe Pain (Last dose: 05/23/2016 17:15) 2. Colace 100 mg oral cap once daily (Last dose: 05/23/2016) 3. ibuprofen 400 mg Oral tab (Last dose: 05/22/2016) - PMHx: colon CA; - PSHx: ostomy reversal; colectomy?; - Social history: Smoking status: Patient states was never smoker of tobacco. Patient/guardian denies using alcohol, street drugs, No barriers to communication noted, The patient speaks fluent Peruvian, Speaks appropriately for age. - Family history: Not pertinent. - : The pt / caregiver states he / she is not on anticoagulants. Home medication list is obtained from the patient. - Exposure Risk Screening:: None identified. Vital Signs: 05/23 17:49 BP 158 / 73 RA Sitting (auto/reg); Pulse 89; Resp 18; Temp 98.2; Pulse Ox 97% on R/A; jrd Weight 79.83 kg / 176 lbs (R); Height 5 ft. 11 in. (180.34 cm) (R); Pain 3/10; 22:10 BP 125 / 78; Pulse 78; Resp 18; Temp 98(T); Pulse Ox 99% on R/A; Pain 0/10; rs3 17:49 Body Mass Index 24.55 (79.83 kg, 180.34 cm) jrd MDM: 18:27 -Blood Culture (Adults Only), peripheral from different site, or from device/port/PICC ck7 etc. if present ordered. 18:27 IV Saline Lock ordered. ck7 18:27 NS 0.9% 1000 ml IV at bolus once ordered. ck7 18:28 CBC with Diff Ordered. EDMS 18:28 MED Profile Ordered. EDMS 18:28 -Blood Culture Ordered. EDMS 18:28 Wound Culture - All Other Sources Ordered. EDMS 18:28 CT ABD & PELVIS: IV and Oral Contrast Ordered. EDMS 18:28 -Blood Culture (Adults Only), peripheral from different site, or from device/port/PICC ar3 etc. if present complete. 18:30 BLOOD CULTURES Ordered. EDMS 18:37 Diatrizoate Meglumine & Sodium Liquid 10 ml PO once; mix in 290cc of water, 1st cup \T\ rs3 6.50 pm 2nd cup \T\7.20pm ordered. 19:45 Financial registration complete. zo 20:10 [facility] Payment Agreement was scanned into [employer] and attached to record. zo 21:14 CBC with Diff Reviewed. ck7 21:14 MED Profile Reviewed. ck7 21:41 CT ABD & PELVIS: IV and Oral Contrast Reviewed. ck7 21:41 Cephalexin 500 mg PO once ordered. ck7 21:42 Dressing ordered. ck7 05/24 09:15 T-Sheet-- Draft Copy was scanned into [employer] and attached to record. gb Administered Medications: 05/23 18:43 Drug: NS 0.9% 1000 ml [sodium chloride 0.9 % intravenous solution] Route: IV; Rate: rs3 bolus; Site: left antecubital; 18:43 Drug: Diatrizoate Meglumine & Sodium 10 ml [diatrizoate meglumine and diat.sodium 66 rs3 %-10 % oral solution (10 mL)] Route: PO; 21:56 Drug: Cephalexin 500 mg [cephalexin 250 mg capsule (2 caps)] Route: PO; rs3 Signatures: Dispatcher [employer] EDMS Stefany Rivers, Reg Reg gb Antonio, Nelsy Christy,RN RN rs3 Urszula Méndez, SPEECH LANGUAGE PATHOLOGY ASSISTANT SPEECH LANGUAGE PATHOLOGY ASSISTANT ar3 Julio C Steel, RPA-C RPA-Cck7 Shirley Macedo RN RN ttb The chart was reviewed and I authenticate all verbal orders and agree with the evaluation and treatment provided.Attachments: 20:10 [facility] Payment Agreement zo 05/24 09:15 T-Sheet-- Draft Copy gb Chart Complete MTDD
--- NOTE | 2016-05-27 10:09 | EDDOCDS ---
Physician Documentation [facility] Name: Malcolm Perez Age: 25 yrs Sex: Male : 1990 Arrival Date: 05/23/2016 Time: 17:44 Bed I5 / M5 Private MD: Andrey Molina [facility] Disposition: 05/23/16 22:00 Discharged to Home/Self Care. Impression: Disruption of wound, unspecified - STAPLE LINE DEHISCENCE, Cellulitis, unspecified. - Condition is Stable. - Discharge Instructions: Cellulitis, Wound Dehiscence. - Prescriptions for Keflex 500 mg Oral Capsule - take 1 capsule by ORAL route every 6 hours for 10 days; 40 capsule. - Medication Reconciliation, Local Pharmacy Hours form. - Follow up: Private Physician; When: Tomorrow; Reason: Recheck today's complaints, Continuance of care. - Problem is new. - Symptoms have improved. - Notes: FOLLOW UP WITH DR UGALDE TOMORROW PREVIOUSLY INSTRUCTED, USE KELFEX INSTRUCTED, RETURN TO THE ER IF THE SYMPTOMS WORSE OR BECOME CONCERNING Historical: - Allergies: Lortab; - Home Meds: 1. morphine 30 mg Oral cap as needed pt has been using approx 2 x/day for Severe Pain (Last dose: 05/23/2016 17:15) 2. Colace 100 mg oral cap once daily (Last dose: 05/23/2016) 3. ibuprofen 400 mg Oral tab (Last dose: 05/22/2016) - PMHx: colon CA; - PSHx: ostomy reversal; colectomy?; - Social history: Smoking status: Patient states was never smoker of tobacco. Patient/guardian denies using alcohol, street drugs, No barriers to communication noted, The patient speaks fluent Sierra Leonean, Speaks appropriately for age. - Family history: Not pertinent. - : The pt / caregiver states he / she is not on anticoagulants. Home medication list is obtained from the patient. - Exposure Risk Screening:: None identified. Vital Signs: 05/23 17:49 BP 158 / 73 RA Sitting (auto/reg); Pulse 89; Resp 18; Temp 98.2; Pulse Ox 97% on R/A; jrd Weight 79.83 kg / 176 lbs (R); Height 5 ft. 11 in. (180.34 cm) (R); Pain 3/10; 22:10 BP 125 / 78; Pulse 78; Resp 18; Temp 98(T); Pulse Ox 99% on R/A; Pain 0/10; rs3 17:49 Body Mass Index 24.55 (79.83 kg, 180.34 cm) jrd MDM: 18:27 -Blood Culture (Adults Only), peripheral from different site, or from device/port/PICC ck7 etc. if present ordered. 18:27 IV Saline Lock ordered. ck7 18:27 NS 0.9% 1000 ml IV at bolus once ordered. ck7 18:28 CBC with Diff Ordered. EDMS 18:28 MED Profile Ordered. EDMS 18:28 -Blood Culture Ordered. EDMS 18:28 Wound Culture - All Other Sources Ordered. EDMS 18:28 CT ABD & PELVIS: IV and Oral Contrast Ordered. EDMS 18:28 -Blood Culture (Adults Only), peripheral from different site, or from device/port/PICC ar3 etc. if present complete. 18:30 BLOOD CULTURES Ordered. EDMS 18:37 Diatrizoate Meglumine & Sodium Liquid 10 ml PO once; mix in 290cc of water, 1st cup \T\ rs3 6.50 pm 2nd cup \T\7.20pm ordered. 19:45 Financial registration complete. zo 20:10 [facility] Payment Agreement was scanned into [employer] and attached to record. zo 21:14 CBC with Diff Reviewed. ck7 21:14 MED Profile Reviewed. ck7 21:41 CT ABD & PELVIS: IV and Oral Contrast Reviewed. ck7 21:41 Cephalexin 500 mg PO once ordered. ck7 21:42 Dressing ordered. ck7 05/24 09:15 T-Sheet-- Draft Copy was scanned into [employer] and attached to record. gb Administered Medications: 05/23 18:43 Drug: NS 0.9% 1000 ml [sodium chloride 0.9 % intravenous solution] Route: IV; Rate: rs3 bolus; Site: left antecubital; 18:43 Drug: Diatrizoate Meglumine & Sodium 10 ml [diatrizoate meglumine and diat.sodium 66 rs3 %-10 % oral solution (10 mL)] Route: PO; 21:56 Drug: Cephalexin 500 mg [cephalexin 250 mg capsule (2 caps)] Route: PO; rs3 Signatures: Dispatcher [employer] EDMS Stefany Rivers, Reg Reg gb Antonio, Nelsy Christy,RN RN rs3 Urszula Méndez, VERIFICATION ENGINEER VERIFICATION ENGINEER ar3 Julio C Steel, RPA-C RPA-Cck7 Shirley Macedo RN RN ttb The chart was reviewed and I authenticate all verbal orders and agree with the evaluation and treatment provided.Attachments: 20:10 [facility] Payment Agreement zo 05/24 09:15 T-Sheet-- Draft Copy gb MTDD
--- NOTE | 2016-05-27 10:09 | EDDOCDS ---
Nurse's Notes [facility] Name: Malcolm Perez Age: 25 yrs Sex: Male : 1990 Arrival Date: 05/23/2016 Time: 17:44 Bed I5 / M5 Private MD: Andrey Molina [facility] Diagnosis: Disruption of wound, unspecified-STAPLE LINE DEHISCENCE;Cellulitis, unspecified Presentation: 05/23 17:52 Presenting complaint: Patient states: abd surgery at [facility] on 05/06 -- discharged from [facility] approx 2 weeks ago -- 1st f/u tomorrow in office. Pt concerned with the appearance of lloyd at this time. States there is discharge. Adult Sepsis Screening: The patient does not have new or worsening altered mentation. Patient's respiratory rate is less than 22. Systolic blood pressure is greater than 100. Patient has a qSOFA score of 0- Negative Sepsis Screen. Suicide/Homicide risk assessment- the patient denies having any suicidal and/or homicidal ideations and does not present with any other emotional, behavioral or mental health complaints. 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 Transition of care: patient was not received from another setting of care. 17:52 Acuity: BRUNILDA Level 3 ttb 17:52 Method Of Arrival: Walkin/Carried/Asstd ttb 18:05 Presenting complaint: upon inspection, small area noted distal to umbilicus with fluid ttb filled sac. Approx 1cm. Fluid appears clear mainly. Surrounding tissue appears healthy, no erythema noted. Triage Assessment: 17:58 General: Appears in no apparent distress, well nourished, well groomed, Behavior is ttb appropriate for age, cooperative, flat, pleasant, quiet. Pain: Location: abd 06/04. HIV screening NA for this visit Offered previously. Neurological: Level of Consciousness is awake, alert. Cardiovascular: Chest pain is denied. Respiratory: No deficits noted. Airway is patent Respiratory effort is even, unlabored. GI: other pt states large surgical incision to abd Reports tolerance of food, tolerance of fluids, Denies vomiting. Derm: Skin is normal. Injury Description: surgical site. Historical: - Allergies: Lortab; - Home Meds: 1. morphine 30 mg Oral cap as needed pt has been using approx 2 x/day for Severe Pain (Last dose: 05/23/2016 17:15) 2. Colace 100 mg oral cap once daily (Last dose: 05/23/2016) 3. ibuprofen 400 mg Oral tab (Last dose: 05/22/2016) - PMHx: colon CA; - PSHx: ostomy reversal; colectomy?; - Social history: Smoking status: Patient states was never smoker of tobacco. Patient/guardian denies using alcohol, street drugs, No barriers to communication noted, The patient speaks fluent [place]iboutian, Speaks appropriately for age. - Family history: Not pertinent. - : The pt / caregiver states he / she is not on anticoagulants. Home medication list is obtained from the patient. - Exposure Risk Screening:: None identified. Screenin:52 Screening information is obtained from the patient. Fall risk: No risks identified. dy Assistance ADL's: requires no assistance with activities of daily living. Abuse/DV Screen: The patient / caregiver reports he/she is: not in a situation that causes fear, pain or injury. Nutritional screening: No deficits noted. Advance Directives: Currently, there is no health care proxy. home support is adequate. Assessment: 18:50 General: Appears in no apparent distress, Behavior is appropriate for age, cooperative. dy Pain: Location: abdomen Pain currently is 3 out of 10 on a pain scale. Neurological: No deficits noted. Respiratory: Airway is patent Respiratory effort is even, unlabored. GI: Abdomen is flat, non- distended midline surgical scar stapled full length of abdomen into suprapubic area. purulent drainage noted just below umbilicus. left lower 7.5-10 cm stapled surgical wound without redness or drainage noted. 19:58 General: Appears in no apparent distress, Behavior is appropriate for age, cooperative, rs3 sits up on stretcher texting on his phone. denies of acute distress/pain. waiting for CT scan. completed oral contrast. tolerating well. IVF NS bolus infusing. 20:44 General: Appears in no apparent distress, Behavior is appropriate for age, cooperative, rs3 patient returned from CT. tolerated procedure well. waiting on test results. . 21:56 General: Appears in no apparent distress, resting comfortable. denies of pain/distress. rs3 friend at bedside. wet dressing applied. . 22:09 Reassessment: Patient appears in no apparent distress at this time. Patient denies pain rs3 at this time. Patient states feeling better. Patient states symptoms have improved. Vital Signs: 17:49 BP 158 / 73 RA Sitting (auto/reg); Pulse 89; Resp 18; Temp 98.2; Pulse Ox 97% on R/A; jrd Weight 79.83 kg (R); Height 5 ft. 11 in. (180.34 cm) (R); Pain 3/10; 22:10 BP 125 / 78; Pulse 78; Resp 18; Temp 98(T); Pulse Ox 99% on R/A; Pain 0/10; rs3 17:49 Body Mass Index 24.55 (79.83 kg, 180.34 cm) [facility] Vitals: 17:49 Log In Time: May 23, 2016 at 17:44. [facility] ED Course: 17:46 Patient visited by Luis Manuel Rod PCA. jrd 17:46 Patient moved to Waiting jrd 17:48 [place], [facility] is Private Physician. jrd 17:50 Patient visited by Luis Manuel Rod PCA. jrd 17:50 Patient moved to Pre RCE jrd 17:54 Triage Initiated ttb 17:59 Patient moved to Triage 3 ttb 18:15 Julio C Steel [facility] ck7 18:15 Arturo Lowe MD is Attending Physician. ck7 18:15 Patient visited by Julio C Steel RPA-C. ck7 18:29 Patient moved to I5 / M5 ar3 18:41 The patient / caregiver is instructed regarding the plan of care and ED course. Patient dy has correct armband on for positive identification. Placed in gown. Bed in low position. Call light in reach. Side rails up X 1. 18:41 Wound Culture - All Other Sources Sent. dy 18:41 -Blood Culture Sent. dy 18:41 MED Profile Sent. dy 18:41 CBC with Diff Sent. dy 18:41 Inserted saline lock: 20 gauge in left antecubital area and blood collected. The dy patient tolerated the procedure well. Labs/Blood culture drawn Wound culture sent to lab. 18:44 BLOOD CULTURES Sent. jlm 18:47 Patient visited by Gloria Cope, Tunnel Worker. jl 19:23 Patient visited by Julio C Steel RPA-C. ck7 19:57 Patient visited by Julio C Steel RPA-C. ck7 20:10 [facility] Payment Agreement was scanned into [employer] and attached to record. zo 20:44 Patient visited by Nelsy Diamond RN. rs3 21:14 Patient visited by Julio C Steel RPA-C. ck7 21:25 CT ABD & PELVIS: IV and Oral Contrast Returned. EDMS 22:00 Patient visited by Nelsy Diamond RN. rs3 22:10 Discontinued lock bleeding controlled, pressure dressing applied, No redness/swelling rs3 at site. No procedures done that require assistance. 05/24 09:15 T-Sheet-- Draft Copy was scanned into [employer] and attached to record. gb Administered Medications: 05/23 18:43 Drug: NS 0.9% 1000 ml [sodium chloride 0.9 % intravenous solution] Route: IV; Rate: rs3 bolus; Site: left antecubital; 18:43 Drug: Diatrizoate Meglumine & Sodium 10 ml [diatrizoate meglumine and diat.sodium 66 rs3 %-10 % oral solution (10 mL)] Route: PO; 21:56 Drug: Cephalexin 500 mg [cephalexin 250 mg capsule (2 caps)] Route: PO; rs3 Order Results: Lab Order: CBC with Diff; SPEC'M 05/23/16 18:32 Test: WHITE BLOOD COUNT; Value: 7.2; Range: 4.0-10.0; Units: K/mm3; Status: F Test: RED BLOOD COUNT; Value: 4.53; Range: 4.30-6.10; Units: M/mm3; Status: F Test: HEMOGLOBIN; Value: 12.6; Range: 14.0-18.0; Abnormal: Below low normal; Units: g/dl; Status: F Test: HEMATOCRIT; Value: 39.1; Range: 42.0-52.0; Abnormal: Below low normal; Units: %; Status: F Test: MEAN CORPUSCULAR VOLUME; Value: 86.2; Range: 80.0-96.0; Units: fl; Status: F Test: MEAN CORPUSCULAR HEMOGLOBIN; Value: 27.8; Range: 27.0-33.0; Units: pg; Status: F Test: MEAN CORPUSCULAR HGB CONC; Value: 32.2; Range: 32.0-36.5; Units: g/dl; Status: F Test: RED CELL DISTRIBUTION WIDTH; Value: 14.2; Range: 11.5-14.5; Units: %; Status: F Test: PLATELET COUNT, AUTOMATED; Value: 676; Range: 150-450; Abnormal: Above high normal; Units: k/mm3; Status: F Test: NEUTROPHILS %; Value: 77.6; Range: 36.0-66.0; Abnormal: Above high normal; Units: %; Status: F Test: LYMPH %; Value: 16.0; Range: 24.0-44.0; Abnormal: Below low normal; Units: %; Status: F Test: MONO %; Value: 3.2; Range: 0.0-5.0; Units: %; Status: F Test: EOS %; Value: 1.2; Range: 0.0-3.0; Units: %; Status: F Test: BASO %; Value: 0.4; Range: 0.0-1.0; Units: %; Status: F Test: LARGE UNSTAINED CELL %; Value: 1.6; Range: 0.0-4.0; Units: %; Status: F Test: NEUTROPHILS #; Value: 5.6; Range: 1.8-7.7; Units: K/mm3; Status: F Test: LYMPH #; Value: 1.2; Range: 1.5-6.5; Abnormal: Below low normal; Units: K/mm3; Status: F Test: MONO #; Value: 0.2; Range: 0.0-0.8; Units: K/mm3; Status: F Test: EOS #; Value: 0.1; Range: 0.0-0.50; Units: K/mm3; Status: F Test: BASO #; Value: 0.0; Range: 0.0-0.2; Units: K/mm3; Status: F Test: LARGE UNSTAINED CELL #; Value: 0.1; Range: 0.0-0.4; Units: K/mm3; Status: F Lab Order: MED Profile; SPEC'M 05/23/16 18:32 Test: GLUCOSE, FASTING; Value: 92; Range: 70-105; Units: MG/DL; Status: F Test: BLOOD UREA NITROGEN; Value: 11; Range: 7-18; Units: MG/DL; Status: F Test: CREATININE FOR GFR; Value: 0.86; Range: 0.70-1.30; Units: MG/DL; Status: F Test: GLOMERULAR FILTRATION RATE; Value: > 60.0; Range: >60; Status: F Test: SODIUM LEVEL; Value: 141; Range: 136-145; Units: MEQ/L; Status: F Test: POTASSIUM SERUM; Value: 4.3; Range: 3.5-5.1; Units: MEQ/L; Status: F Test: CHLORIDE LEVEL; Value: 101; Range: 98-107; Units: MEQ/L; Status: F Test: CARBON DIOXIDE LEVEL; Value: 31; Range: 21-32; Units: MEQ/L; Status: F Test: ANION GAP; Value: 9; Range: 8-16; Units: MEQ/L; Status: F Test: CALCIUM LEVEL; Value: 9.1; Range: 8.5-10.1; Units: MG/DL; Status: F Test Note: ; Units are mL/min/1.73 m2 Chronic Kidney Disease Staging per NKF: Stage I & II GFR >=60 Normal to Mildly Decreased Stage III GFR 30-59 Moderately Decreased Stage IV GFR 15-29 Severely Decreased Stage V GFR <15 Very Little GFR Left ESRD GFR <15 on [facility]EDIATRIC HOSPITALIST Lab Order: -Blood Culture; SPEC'M 05/23/16 18:32 Test: BLOOD CULTURE; Value: No growth after 48 hours . All specimens observed; Status: F Test: BLOOD CULTURE; Value: for 5 days. Results final at that time.; Status: F Test: BLOOD CULTURE; Status: F Test: BLOOD CULTURE; Value: No growth after 24 hours . All specimens observed; Status: F Test: BLOOD CULTURE; Value: for 5 days. Results final at that time.; Status: F Test: BLOOD CULTURE; Value: No Growth after 72 hours. All specimens observed; Status: F Test: BLOOD CULTURE; Value: for 7 days. Results final at that time.; Status: F Lab Order: Wound Culture - All Other Sources; SPEC'M 05/23/16 18:32 Test: WOUND CULTURE; Value: <EXTERNAL COMMENT eCWMed> FULL REPORT IN LAB NOTES (eCW and Medent).; Status: F Test: WOUND CULTURE; Value: ORGANISM 1: STAPHYLOCOCCUS AUREUS; Status: F Test: WOUND CULTURE; Value: STAPHYLOCOCCUS AUREUS; Status: F Test: WOUND CULTURE; Value: QUANTITY OF GROWTH HEAVY; Status: F Test: WOUND CULTURE; Value: GRAM POS SENSI - VITEK 67; Status: F Test: WOUND CULTURE; Value: Method: VIT2; Status: F Test: WOUND CULTURE; Value: TETRACYCLINE <=1 S; Status: F Test: WOUND CULTURE; Value: PENICILLIN G >=0.5 R; Status: F Test: WOUND CULTURE; Value: TRIMETHOPRIM/SULFAMETHOXAZOLE <=10 S; Status: F Test: WOUND CULTURE; Value: ERYTHROMYCIN <=0.25 S; Status: F Test: WOUND CULTURE; Value: GENTAMICIN <=0.5 S; Status: F Test: WOUND CULTURE; Value: CLINDAMYCIN <=0.25 S; Status: F Test: WOUND CULTURE; Value: OXACILLIN <=0.25 S; Status: F Test: WOUND CULTURE; Value: VANCOMYCIN 1 S; Status: F Test: WOUND CULTURE; Value: LINEZOLID (ZYVOX) 2 S; Status: F Lab Order: BLOOD CULTURES; SPEC'M 05/23/16 18:33 Test: BLOOD CULTURE; Value: No growth after 48 hours . All specimens observed; Status: F Test: BLOOD CULTURE; Value: for 5 days. Results final at that time.; Status: F Test: BLOOD CULTURE; Status: F Test: BLOOD CULTURE; Value: No growth after 24 hours . All specimens observed; Status: F Test: BLOOD CULTURE; Value: for 5 days. Results final at that time.; Status: F Test: BLOOD CULTURE; Value: No Growth after 72 hours. All specimens observed; Status: F Test: BLOOD CULTURE; Value: for 7 days. Results final at that time.; Status: F Radiology Order: CT ABD & PELVIS: IV and Oral Contrast Test: CT ABD & PELVIS: IV and Oral Contrast REASON FOR EXAMINATION: WOUND DEHISCENSE R/O ABSCESS; ; CT of the abdomen and pelvis with contrast; Clinical statement: wound dehiscience.; Technique: Multiple axial CT images were obtained from the base of the lungs through the floor of the; pelvis utilizing 5 mm axial slices after administration of oral and nonionic intravenous contrast. C; oronal and sagittal reconstructions were also obtained.; No comparison is available.; Findings:; Chest: The visualized lung bases are clear.; Abdomen: The liver, spleen, pancreas, kidneys, gallbladder, and adrenal glands are unremarkable. The; aorta is within normal limits. There is no evidence of abdominal lymphadenopathy or ascites. The midl; ine surgical wound at the region of the umbilicus is noted with a tiny amount of fluid. No evidence o; f the dehiscience is appreciated. No discrete mass or loculated fluid collection is identified. There; is a tiny area of low attenuation within the midline rectal sheath in the lower abdomen measuring up; to 3.7 x 1.1 cm, likely representing postsurgical hematoma.; Pelvis: Moderate amount of stool fills the colon.The bowel is otherwise unremarkable, with no obstruc; tive or inflammatory changes. The appendix is normal. The urinary bladder is within normal limits. Th; e other pelvic structures appear grossly intact. There is no evidence of pelvic lymphadenopathy or as; cites.; Bones: There are no suspicious osseous abnormalities seen.; Impression:; 1. Normal postsurgical changes demonstrated in the midline of the abdomen. Small postsurgical low att; enuation collections are consistent with normal hematomas. No evidence of dehiscience. No evidence of; abscess. Surgical clips are seen anteriorly.; 2. Mild constipation. No obstructive or inflammatory bowel changes.; ; ; Outcome: 22:00 Discharge ordered by Provider. ck7 22:09 Discharge Assessment: patient administered narcotics - no. The following High Risk rs3 Discharge criteria are identified: None. Discharged to home with friend. Condition: stable. Discharge instructions given to patient, Instructed on discharge instructions, follow up and referral plans. medication usage, Demonstrated understanding of instructions, medications, Pt was receptive of discharge instructions/ teaching. Prescriptions given X 1. CT Study completed. Property :Personal belongings accompany Pt. 22:11 Patient left the ED. rs3 Addendum: 05/27/2016 10:07 Narrative: wound culture results reviewed with Dr. Rios and no change in treatment kcs needed. Signatures: Dispatcher [facility] Fide Choi RN RN Stefany Schwarz, Reg Reg gb Enrique Burnham, RN RN dy Chao Alvarez Rosemary,JEFF RN rs3 Urszula Méndez, GENOMICS SCIENTIST GENOMICS SCIENTIST ar3 Julio C Steel, RPA-C RPA-Cck7 Shirley Macedo RN RN ttGloria Lao, Tunnel Worker [facility] Luis Manuel Rod, GENOMICS SCIENTIST GENOMICS SCIENTIST jrd MTDD
--- NOTE | 2016-05-27 10:09 | EDDOCDS ---
Physician Documentation [facility] Name: Malcolm Perez Age: 25 yrs Sex: Male : 1990 Arrival Date: 05/23/2016 Time: 17:44 Bed I5 / M5 Private MD: Andrey Molina [facility] Disposition: 05/23/16 22:00 Discharged to Home/Self Care. Impression: Disruption of wound, unspecified - STAPLE LINE DEHISCENCE, Cellulitis, unspecified. - Condition is Stable. - Discharge Instructions: Cellulitis, Wound Dehiscence. - Prescriptions for Keflex 500 mg Oral Capsule - take 1 capsule by ORAL route every 6 hours for 10 days; 40 capsule. - Medication Reconciliation, Local Pharmacy Hours form. - Follow up: Private Physician; When: Tomorrow; Reason: Recheck today's complaints, Continuance of care. - Problem is new. - Symptoms have improved. - Notes: FOLLOW UP WITH DR UGALDE TOMORROW PREVIOUSLY INSTRUCTED, USE KELFEX INSTRUCTED, RETURN TO THE ER IF THE SYMPTOMS WORSE OR BECOME CONCERNING Historical: - Allergies: Lortab; - Home Meds: 1. morphine 30 mg Oral cap as needed pt has been using approx 2 x/day for Severe Pain (Last dose: 05/23/2016 17:15) 2. Colace 100 mg oral cap once daily (Last dose: 05/23/2016) 3. ibuprofen 400 mg Oral tab (Last dose: 05/22/2016) - PMHx: colon CA; - PSHx: ostomy reversal; colectomy?; - Social history: Smoking status: Patient states was never smoker of tobacco. Patient/guardian denies using alcohol, street drugs, No barriers to communication noted, The patient speaks fluent Guyanese, Speaks appropriately for age. - Family history: Not pertinent. - : The pt / caregiver states he / she is not on anticoagulants. Home medication list is obtained from the patient. - Exposure Risk Screening:: None identified. Vital Signs: 05/23 17:49 BP 158 / 73 RA Sitting (auto/reg); Pulse 89; Resp 18; Temp 98.2; Pulse Ox 97% on R/A; jrd Weight 79.83 kg / 176 lbs (R); Height 5 ft. 11 in. (180.34 cm) (R); Pain 3/10; 22:10 BP 125 / 78; Pulse 78; Resp 18; Temp 98(T); Pulse Ox 99% on R/A; Pain 0/10; rs3 17:49 Body Mass Index 24.55 (79.83 kg, 180.34 cm) jrd MDM: 18:27 -Blood Culture (Adults Only), peripheral from different site, or from device/port/PICC ck7 etc. if present ordered. 18:27 IV Saline Lock ordered. ck7 18:27 NS 0.9% 1000 ml IV at bolus once ordered. ck7 18:28 CBC with Diff Ordered. EDMS 18:28 MED Profile Ordered. EDMS 18:28 -Blood Culture Ordered. EDMS 18:28 Wound Culture - All Other Sources Ordered. EDMS 18:28 CT ABD & PELVIS: IV and Oral Contrast Ordered. EDMS 18:28 -Blood Culture (Adults Only), peripheral from different site, or from device/port/PICC ar3 etc. if present complete. 18:30 BLOOD CULTURES Ordered. EDMS 18:37 Diatrizoate Meglumine & Sodium Liquid 10 ml PO once; mix in 290cc of water, 1st cup \T\ rs3 6.50 pm 2nd cup \T\7.20pm ordered. 19:45 Financial registration complete. zo 20:10 [facility] Payment Agreement was scanned into [employer] and attached to record. zo 21:14 CBC with Diff Reviewed. ck7 21:14 MED Profile Reviewed. ck7 21:41 CT ABD & PELVIS: IV and Oral Contrast Reviewed. ck7 21:41 Cephalexin 500 mg PO once ordered. ck7 21:42 Dressing ordered. ck7 05/24 09:15 T-Sheet-- Draft Copy was scanned into [employer] and attached to record. gb Administered Medications: 05/23 18:43 Drug: NS 0.9% 1000 ml [sodium chloride 0.9 % intravenous solution] Route: IV; Rate: rs3 bolus; Site: left antecubital; 18:43 Drug: Diatrizoate Meglumine & Sodium 10 ml [diatrizoate meglumine and diat.sodium 66 rs3 %-10 % oral solution (10 mL)] Route: PO; 21:56 Drug: Cephalexin 500 mg [cephalexin 250 mg capsule (2 caps)] Route: PO; rs3 Signatures: Dispatcher [employer] EDMS Stefany Rivers, Reg Reg gb Antonio, Nelsy Christy,RN RN rs3 Urszula Méndez, NURSE NAVIGATOR NURSE NAVIGATOR ar3 Julio C Steel, RPA-C RPA-Cck7 Shirley Macedo RN RN ttb The chart was reviewed and I authenticate all verbal orders and agree with the evaluation and treatment provided.Attachments: 20:10 [facility] Payment Agreement zo 05/24 09:15 T-Sheet-- Draft Copy gb MTDD
--- NOTE | 2016-05-27 10:10 | EDDOCDS ---
Physician Documentation [facility] Name: Malcolm Perez Age: 25 yrs Sex: Male : 1990 Arrival Date: 05/23/2016 Time: 17:44 Bed I5 / M5 Private MD: Andrey Molina [facility] Disposition: 05/23/16 22:00 Discharged to Home/Self Care. Impression: Disruption of wound, unspecified - STAPLE LINE DEHISCENCE, Cellulitis, unspecified. - Condition is Stable. - Discharge Instructions: Cellulitis, Wound Dehiscence. - Prescriptions for Keflex 500 mg Oral Capsule - take 1 capsule by ORAL route every 6 hours for 10 days; 40 capsule. - Medication Reconciliation, Local Pharmacy Hours form. - Follow up: Private Physician; When: Tomorrow; Reason: Recheck today's complaints, Continuance of care. - Problem is new. - Symptoms have improved. - Notes: FOLLOW UP WITH DR UGALDE TOMORROW PREVIOUSLY INSTRUCTED, USE KELFEX INSTRUCTED, RETURN TO THE ER IF THE SYMPTOMS WORSE OR BECOME CONCERNING Historical: - Allergies: Lortab; - Home Meds: 1. morphine 30 mg Oral cap as needed pt has been using approx 2 x/day for Severe Pain (Last dose: 05/23/2016 17:15) 2. Colace 100 mg oral cap once daily (Last dose: 05/23/2016) 3. ibuprofen 400 mg Oral tab (Last dose: 05/22/2016) - PMHx: colon CA; - PSHx: ostomy reversal; colectomy?; - Social history: Smoking status: Patient states was never smoker of tobacco. Patient/guardian denies using alcohol, street drugs, No barriers to communication noted, The patient speaks fluent Micronesian, Speaks appropriately for age. - Family history: Not pertinent. - : The pt / caregiver states he / she is not on anticoagulants. Home medication list is obtained from the patient. - Exposure Risk Screening:: None identified. Vital Signs: 05/23 17:49 BP 158 / 73 RA Sitting (auto/reg); Pulse 89; Resp 18; Temp 98.2; Pulse Ox 97% on R/A; jrd Weight 79.83 kg / 176 lbs (R); Height 5 ft. 11 in. (180.34 cm) (R); Pain 3/10; 22:10 BP 125 / 78; Pulse 78; Resp 18; Temp 98(T); Pulse Ox 99% on R/A; Pain 0/10; rs3 17:49 Body Mass Index 24.55 (79.83 kg, 180.34 cm) jrd MDM: 18:27 -Blood Culture (Adults Only), peripheral from different site, or from device/port/PICC ck7 etc. if present ordered. 18:27 IV Saline Lock ordered. ck7 18:27 NS 0.9% 1000 ml IV at bolus once ordered. ck7 18:28 CBC with Diff Ordered. EDMS 18:28 MED Profile Ordered. EDMS 18:28 -Blood Culture Ordered. EDMS 18:28 Wound Culture - All Other Sources Ordered. EDMS 18:28 CT ABD & PELVIS: IV and Oral Contrast Ordered. EDMS 18:28 -Blood Culture (Adults Only), peripheral from different site, or from device/port/PICC ar3 etc. if present complete. 18:30 BLOOD CULTURES Ordered. EDMS 18:37 Diatrizoate Meglumine & Sodium Liquid 10 ml PO once; mix in 290cc of water, 1st cup \T\ rs3 6.50 pm 2nd cup \T\7.20pm ordered. 19:45 Financial registration complete. zo 20:10 [facility] Payment Agreement was scanned into [employer] and attached to record. zo 21:14 CBC with Diff Reviewed. ck7 21:14 MED Profile Reviewed. ck7 21:41 CT ABD & PELVIS: IV and Oral Contrast Reviewed. ck7 21:41 Cephalexin 500 mg PO once ordered. ck7 21:42 Dressing ordered. ck7 05/24 09:15 T-Sheet-- Draft Copy was scanned into [employer] and attached to record. gb Administered Medications: 05/23 18:43 Drug: NS 0.9% 1000 ml [sodium chloride 0.9 % intravenous solution] Route: IV; Rate: rs3 bolus; Site: left antecubital; 18:43 Drug: Diatrizoate Meglumine & Sodium 10 ml [diatrizoate meglumine and diat.sodium 66 rs3 %-10 % oral solution (10 mL)] Route: PO; 21:56 Drug: Cephalexin 500 mg [cephalexin 250 mg capsule (2 caps)] Route: PO; rs3 Signatures: Dispatcher [employer] EDMS Stefany Rivers, Reg Reg gb Antonio, Nelsy Christy,RN RN rs3 Urszula Méndez, ENGLISH LANGUAGE ARTS TEACHER ENGLISH LANGUAGE ARTS TEACHER ar3 Julio C Steel, RPA-C RPA-Cck7 Shirley Macedo RN RN ttb The chart was reviewed and I authenticate all verbal orders and agree with the evaluation and treatment provided.Attachments: 20:10 [facility] [place] zo 05/24 09:15 T-Sheet-- Draft Copy gb Chart Complete MTDD
--- NOTE | 2016-05-27 10:10 | EDDOCDS ---
Physician Documentation [facility] Name: Malcolm Perez Age: 25 yrs Sex: Male : 1990 Arrival Date: 05/23/2016 Time: 17:44 Bed I5 / M5 Private MD: Andrey Molina [facility] Disposition: 05/23/16 22:00 Discharged to Home/Self Care. Impression: Disruption of wound, unspecified - STAPLE LINE DEHISCENCE, Cellulitis, unspecified. - Condition is Stable. - Discharge Instructions: Cellulitis, Wound Dehiscence. - Prescriptions for Keflex 500 mg Oral Capsule - take 1 capsule by ORAL route every 6 hours for 10 days; 40 capsule. - Medication Reconciliation, Local Pharmacy Hours form. - Follow up: Private Physician; When: Tomorrow; Reason: Recheck today's complaints, Continuance of care. - Problem is new. - Symptoms have improved. - Notes: FOLLOW UP WITH DR UGALDE TOMORROW PREVIOUSLY INSTRUCTED, USE KELFEX INSTRUCTED, RETURN TO THE ER IF THE SYMPTOMS WORSE OR BECOME CONCERNING Historical: - Allergies: Lortab; - Home Meds: 1. morphine 30 mg Oral cap as needed pt has been using approx 2 x/day for Severe Pain (Last dose: 05/23/2016 17:15) 2. Colace 100 mg oral cap once daily (Last dose: 05/23/2016) 3. ibuprofen 400 mg Oral tab (Last dose: 05/22/2016) - PMHx: colon CA; - PSHx: ostomy reversal; colectomy?; - Social history: Smoking status: Patient states was never smoker of tobacco. Patient/guardian denies using alcohol, street drugs, No barriers to communication noted, The patient speaks fluent Welsh, Speaks appropriately for age. - Family history: Not pertinent. - : The pt / caregiver states he / she is not on anticoagulants. Home medication list is obtained from the patient. - Exposure Risk Screening:: None identified. Vital Signs: 05/23 17:49 BP 158 / 73 RA Sitting (auto/reg); Pulse 89; Resp 18; Temp 98.2; Pulse Ox 97% on R/A; jrd Weight 79.83 kg / 176 lbs (R); Height 5 ft. 11 in. (180.34 cm) (R); Pain 3/10; 22:10 BP 125 / 78; Pulse 78; Resp 18; Temp 98(T); Pulse Ox 99% on R/A; Pain 0/10; rs3 17:49 Body Mass Index 24.55 (79.83 kg, 180.34 cm) jrd MDM: 18:27 -Blood Culture (Adults Only), peripheral from different site, or from device/port/PICC ck7 etc. if present ordered. 18:27 IV Saline Lock ordered. ck7 18:27 NS 0.9% 1000 ml IV at bolus once ordered. ck7 18:28 CBC with Diff Ordered. EDMS 18:28 MED Profile Ordered. EDMS 18:28 -Blood Culture Ordered. EDMS 18:28 Wound Culture - All Other Sources Ordered. EDMS 18:28 CT ABD & PELVIS: IV and Oral Contrast Ordered. EDMS 18:28 -Blood Culture (Adults Only), peripheral from different site, or from device/port/PICC ar3 etc. if present complete. 18:30 BLOOD CULTURES Ordered. EDMS 18:37 Diatrizoate Meglumine & Sodium Liquid 10 ml PO once; mix in 290cc of water, 1st cup \T\ rs3 6.50 pm 2nd cup \T\7.20pm ordered. 19:45 Financial registration complete. zo 20:10 [facility] Payment Agreement was scanned into [employer] and attached to record. zo 21:14 CBC with Diff Reviewed. ck7 21:14 MED Profile Reviewed. ck7 21:41 CT ABD & PELVIS: IV and Oral Contrast Reviewed. ck7 21:41 Cephalexin 500 mg PO once ordered. ck7 21:42 Dressing ordered. ck7 05/24 09:15 T-Sheet-- Draft Copy was scanned into [employer] and attached to record. gb Administered Medications: 05/23 18:43 Drug: NS 0.9% 1000 ml [sodium chloride 0.9 % intravenous solution] Route: IV; Rate: rs3 bolus; Site: left antecubital; 18:43 Drug: Diatrizoate Meglumine & Sodium 10 ml [diatrizoate meglumine and diat.sodium 66 rs3 %-10 % oral solution (10 mL)] Route: PO; 21:56 Drug: Cephalexin 500 mg [cephalexin 250 mg capsule (2 caps)] Route: PO; rs3 Signatures: Dispatcher [employer] EDMS Stefany Rivers, Reg Reg gb Antonio, Nelsy Christy,RN RN rs3 Urszula Méndez, SENIOR MAINFRAME PROGRAMMER ANALYST SENIOR MAINFRAME PROGRAMMER ANALYST ar3 Julio C Steel, RPA-C RPA-Cck7 Shirley Macedo RN RN ttb The chart was reviewed and I authenticate all verbal orders and agree with the evaluation and treatment provided.Attachments: 20:10 [facility] [place] zo 05/24 09:15 T-Sheet-- Draft Copy gb Chart Complete MTDD
--- NOTE | 2016-05-27 10:10 | EDDOCDS ---
Nurse's Notes [facility] Name: Malcolm Perez Age: 25 yrs Sex: Male : 1990 Arrival Date: 05/23/2016 Time: 17:44 Bed I5 / M5 Private MD: Andrey Molina [facility] Diagnosis: Disruption of wound, unspecified-STAPLE LINE DEHISCENCE;Cellulitis, unspecified Presentation: 05/23 17:52 Presenting complaint: Patient states: abd surgery at [facility] on 05/06 -- discharged from [facility] approx 2 weeks ago -- 1st f/u tomorrow in office. Pt concerned with the appearance of lloyd at this time. States there is discharge. Adult Sepsis Screening: The patient does not have new or worsening altered mentation. Patient's respiratory rate is less than 22. Systolic blood pressure is greater than 100. Patient has a qSOFA score of 0- Negative Sepsis Screen. Suicide/Homicide risk assessment- the patient denies having any suicidal and/or homicidal ideations and does not present with any other emotional, behavioral or mental health complaints. 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 Transition of care: patient was not received from another setting of care. 17:52 Acuity: BRUNILDA Level 3 ttb 17:52 Method Of Arrival: Walkin/Carried/Asstd ttb 18:05 Presenting complaint: upon inspection, small area noted distal to umbilicus with fluid ttb filled sac. Approx 1cm. Fluid appears clear mainly. Surrounding tissue appears healthy, no erythema noted. Triage Assessment: 17:58 General: Appears in no apparent distress, well nourished, well groomed, Behavior is ttb appropriate for age, cooperative, flat, pleasant, quiet. Pain: Location: abd 06/04. HIV screening NA for this visit Offered previously. Neurological: Level of Consciousness is awake, alert. Cardiovascular: Chest pain is denied. Respiratory: No deficits noted. Airway is patent Respiratory effort is even, unlabored. GI: other pt states large surgical incision to abd Reports tolerance of food, tolerance of fluids, Denies vomiting. Derm: Skin is normal. Injury Description: surgical site. Historical: - Allergies: Lortab; - Home Meds: 1. morphine 30 mg Oral cap as needed pt has been using approx 2 x/day for Severe Pain (Last dose: 05/23/2016 17:15) 2. Colace 100 mg oral cap once daily (Last dose: 05/23/2016) 3. ibuprofen 400 mg Oral tab (Last dose: 05/22/2016) - PMHx: colon CA; - PSHx: ostomy reversal; colectomy?; - Social history: Smoking status: Patient states was never smoker of tobacco. Patient/guardian denies using alcohol, street drugs, No barriers to communication noted, The patient speaks fluent Greek, Speaks appropriately for age. - Family history: Not pertinent. - : The pt / caregiver states he / she is not on anticoagulants. Home medication list is obtained from the patient. - Exposure Risk Screening:: None identified. Screenin:52 Screening information is obtained from the patient. Fall risk: No risks identified. dy Assistance ADL's: requires no assistance with activities of daily living. Abuse/DV Screen: The patient / caregiver reports he/she is: not in a situation that causes fear, pain or injury. Nutritional screening: No deficits noted. Advance Directives: Currently, there is no health care proxy. home support is adequate. Assessment: 18:50 General: Appears in no apparent distress, Behavior is appropriate for age, cooperative. dy Pain: Location: abdomen Pain currently is 3 out of 10 on a pain scale. Neurological: No deficits noted. Respiratory: Airway is patent Respiratory effort is even, unlabored. GI: Abdomen is flat, non- distended midline surgical scar stapled full length of abdomen into suprapubic area. purulent drainage noted just below umbilicus. left lower 7.5-10 cm stapled surgical wound without redness or drainage noted. 19:58 General: Appears in no apparent distress, Behavior is appropriate for age, cooperative, rs3 sits up on stretcher texting on his phone. denies of acute distress/pain. waiting for CT scan. completed oral contrast. tolerating well. IVF NS bolus infusing. 20:44 General: Appears in no apparent distress, Behavior is appropriate for age, cooperative, rs3 patient returned from CT. tolerated procedure well. waiting on test results. . 21:56 General: Appears in no apparent distress, resting comfortable. denies of pain/distress. rs3 friend at bedside. wet dressing applied. . 22:09 Reassessment: Patient appears in no apparent distress at this time. Patient denies pain rs3 at this time. Patient states feeling better. Patient states symptoms have improved. Vital Signs: 17:49 BP 158 / 73 RA Sitting (auto/reg); Pulse 89; Resp 18; Temp 98.2; Pulse Ox 97% on R/A; jrd Weight 79.83 kg (R); Height 5 ft. 11 in. (180.34 cm) (R); Pain 3/10; 22:10 BP 125 / 78; Pulse 78; Resp 18; Temp 98(T); Pulse Ox 99% on R/A; Pain 0/10; rs3 17:49 Body Mass Index 24.55 (79.83 kg, 180.34 cm) [facility] Vitals: 17:49 Log In Time: May 23, 2016 at 17:44. [facility] ED Course: 17:46 Patient visited by Luis Manuel Rod PCA. jrd 17:46 Patient moved to Waiting jrd 17:48 [place], [facility] is Private Physician. jrd 17:50 Patient visited by Luis Manuel Rod PCA. jrd 17:50 Patient moved to Pre RCE jrd 17:54 Triage Initiated ttb 17:59 Patient moved to Triage 3 ttb 18:15 [facility]io C Steel [facility]-C [facility] ck7 18:15 Arturo Lowe MD is Attending Physician. ck7 18:15 Patient visited by Julio C Steel RPA-C. ck7 18:29 Patient moved to I5 / M5 ar3 18:41 The patient / caregiver is instructed regarding the plan of care and ED course. Patient dy has correct armband on for positive identification. Placed in gown. Bed in low position. Call light in reach. Side rails up X 1. 18:41 Wound Culture - All Other Sources Sent. dy 18:41 -Blood Culture Sent. dy 18:41 MED Profile Sent. dy 18:41 CBC with Diff Sent. dy 18:41 Inserted saline lock: 20 gauge in left antecubital area and blood collected. The dy patient tolerated the procedure well. Labs/Blood culture drawn Wound culture sent to lab. 18:44 BLOOD CULTURES Sent. jlm 18:47 Patient visited by Gloria Cope, Skein Straightener. jl 19:23 Patient visited by Julio C Steel RPA-C. ck7 19:57 Patient visited by Julio C Steel RPA-C. ck7 20:10 [facility] Payment Agreement was scanned into [employer] and attached to record. zo 20:44 Patient visited by Nelsy Diamond RN. rs3 21:14 Patient visited by Julio C Steel RPA-C. ck7 21:25 CT ABD & PELVIS: IV and Oral Contrast Returned. EDMS 22:00 Patient visited by Nelsy Diamond RN. rs3 22:10 Discontinued lock bleeding controlled, pressure dressing applied, No redness/swelling rs3 at site. No procedures done that require assistance. 05/24 09:15 T-Sheet-- Draft Copy was scanned into [employer] and attached to record. gb Administered Medications: 05/23 18:43 Drug: NS 0.9% 1000 ml [sodium chloride 0.9 % intravenous solution] Route: IV; Rate: rs3 bolus; Site: left antecubital; 18:43 Drug: Diatrizoate Meglumine & Sodium 10 ml [diatrizoate meglumine and diat.sodium 66 rs3 %-10 % oral solution (10 mL)] Route: PO; 21:56 Drug: Cephalexin 500 mg [cephalexin 250 mg capsule (2 caps)] Route: PO; rs3 Order Results: Lab Order: CBC with Diff; SPEC'M 05/23/16 18:32 Test: WHITE BLOOD COUNT; Value: 7.2; Range: 4.0-10.0; Units: K/mm3; Status: F Test: RED BLOOD COUNT; Value: 4.53; Range: 4.30-6.10; Units: M/mm3; Status: F Test: HEMOGLOBIN; Value: 12.6; Range: 14.0-18.0; Abnormal: Below low normal; Units: g/dl; Status: F Test: HEMATOCRIT; Value: 39.1; Range: 42.0-52.0; Abnormal: Below low normal; Units: %; Status: F Test: MEAN CORPUSCULAR VOLUME; Value: 86.2; Range: 80.0-96.0; Units: fl; Status: F Test: MEAN CORPUSCULAR HEMOGLOBIN; Value: 27.8; Range: 27.0-33.0; Units: pg; Status: F Test: MEAN CORPUSCULAR HGB CONC; Value: 32.2; Range: 32.0-36.5; Units: g/dl; Status: F Test: RED CELL DISTRIBUTION WIDTH; Value: 14.2; Range: 11.5-14.5; Units: %; Status: F Test: PLATELET COUNT, AUTOMATED; Value: 676; Range: 150-450; Abnormal: Above high normal; Units: k/mm3; Status: F Test: NEUTROPHILS %; Value: 77.6; Range: 36.0-66.0; Abnormal: Above high normal; Units: %; Status: F Test: LYMPH %; Value: 16.0; Range: 24.0-44.0; Abnormal: Below low normal; Units: %; Status: F Test: MONO %; Value: 3.2; Range: 0.0-5.0; Units: %; Status: F Test: EOS %; Value: 1.2; Range: 0.0-3.0; Units: %; Status: F Test: BASO %; Value: 0.4; Range: 0.0-1.0; Units: %; Status: F Test: LARGE UNSTAINED CELL %; Value: 1.6; Range: 0.0-4.0; Units: %; Status: F Test: NEUTROPHILS #; Value: 5.6; Range: 1.8-7.7; Units: K/mm3; Status: F Test: LYMPH #; Value: 1.2; Range: 1.5-6.5; Abnormal: Below low normal; Units: K/mm3; Status: F Test: MONO #; Value: 0.2; Range: 0.0-0.8; Units: K/mm3; Status: F Test: EOS #; Value: 0.1; Range: 0.0-0.50; Units: K/mm3; Status: F Test: BASO #; Value: 0.0; Range: 0.0-0.2; Units: K/mm3; Status: F Test: LARGE UNSTAINED CELL #; Value: 0.1; Range: 0.0-0.4; Units: K/mm3; Status: F Lab Order: MED Profile; SPEC'M 05/23/16 18:32 Test: GLUCOSE, FASTING; Value: 92; Range: 70-105; Units: MG/DL; Status: F Test: BLOOD UREA NITROGEN; Value: 11; Range: 7-18; Units: MG/DL; Status: F Test: CREATININE FOR GFR; Value: 0.86; Range: 0.70-1.30; Units: MG/DL; Status: F Test: GLOMERULAR FILTRATION RATE; Value: > 60.0; Range: >60; Status: F Test: SODIUM LEVEL; Value: 141; Range: 136-145; Units: MEQ/L; Status: F Test: POTASSIUM SERUM; Value: 4.3; Range: 3.5-5.1; Units: MEQ/L; Status: F Test: CHLORIDE LEVEL; Value: 101; Range: 98-107; Units: MEQ/L; Status: F Test: CARBON DIOXIDE LEVEL; Value: 31; Range: 21-32; Units: MEQ/L; Status: F Test: ANION GAP; Value: 9; Range: 8-16; Units: MEQ/L; Status: F Test: CALCIUM LEVEL; Value: 9.1; Range: 8.5-10.1; Units: MG/DL; Status: F Test Note: ; Units are mL/min/1.73 m2 Chronic Kidney Disease Staging per NKF: Stage I & II GFR >=60 Normal to Mildly Decreased Stage III GFR 30-59 Moderately Decreased Stage IV GFR 15-29 Severely Decreased Stage V GFR <15 Very Little GFR Left ESRD GFR <15 on SAP BW CONSULTANT Lab Order: -Blood Culture; SPEC'M 05/23/16 18:32 Test: BLOOD CULTURE; Value: No growth after 48 hours . All specimens observed; Status: F Test: BLOOD CULTURE; Value: for 5 days. Results final at that time.; Status: F Test: BLOOD CULTURE; Status: F Test: BLOOD CULTURE; Value: No growth after 24 hours . All specimens observed; Status: F Test: BLOOD CULTURE; Value: for 5 days. Results final at that time.; Status: F Test: BLOOD CULTURE; Value: No Growth after 72 hours. All specimens observed; Status: F Test: BLOOD CULTURE; Value: for 7 days. Results final at that time.; Status: F Lab Order: Wound Culture - All Other Sources; SPEC'M 05/23/16 18:32 Test: WOUND CULTURE; Value: <EXTERNAL COMMENT eCWMed> FULL REPORT IN LAB NOTES (eCW and Medent).; Status: F Test: WOUND CULTURE; Value: ORGANISM 1: STAPHYLOCOCCUS AUREUS; Status: F Test: WOUND CULTURE; Value: STAPHYLOCOCCUS AUREUS; Status: F Test: WOUND CULTURE; Value: QUANTITY OF GROWTH HEAVY; Status: F Test: WOUND CULTURE; Value: GRAM POS SENSI - VITEK 67; Status: F Test: WOUND CULTURE; Value: Method: VIT2; Status: F Test: WOUND CULTURE; Value: TETRACYCLINE <=1 S; Status: F Test: WOUND CULTURE; Value: PENICILLIN G >=0.5 R; Status: F Test: WOUND CULTURE; Value: TRIMETHOPRIM/SULFAMETHOXAZOLE <=10 S; Status: F Test: WOUND CULTURE; Value: ERYTHROMYCIN <=0.25 S; Status: F Test: WOUND CULTURE; Value: GENTAMICIN <=0.5 S; Status: F Test: WOUND CULTURE; Value: CLINDAMYCIN <=0.25 S; Status: F Test: WOUND CULTURE; Value: OXACILLIN <=0.25 S; Status: F Test: WOUND CULTURE; Value: VANCOMYCIN 1 S; Status: F Test: WOUND CULTURE; Value: LINEZOLID (ZYVOX) 2 S; Status: F Lab Order: BLOOD CULTURES; SPEC'M 05/23/16 18:33 Test: BLOOD CULTURE; Value: No growth after 48 hours . All specimens observed; Status: F Test: BLOOD CULTURE; Value: for 5 days. Results final at that time.; Status: F Test: BLOOD CULTURE; Status: F Test: BLOOD CULTURE; Value: No growth after 24 hours . All specimens observed; Status: F Test: BLOOD CULTURE; Value: for 5 days. Results final at that time.; Status: F Test: BLOOD CULTURE; Value: No Growth after 72 hours. All specimens observed; Status: F Test: BLOOD CULTURE; Value: for 7 days. Results final at that time.; Status: F Radiology Order: CT ABD & PELVIS: IV and Oral Contrast Test: CT ABD & PELVIS: IV and Oral Contrast REASON FOR EXAMINATION: WOUND DEHISCENSE R/O ABSCESS; ; CT of the abdomen and pelvis with contrast; Clinical statement: wound dehiscience.; Technique: Multiple axial CT images were obtained from the base of the lungs through the floor of the; pelvis utilizing 5 mm axial slices after administration of oral and nonionic intravenous contrast. C; oronal and sagittal reconstructions were also obtained.; No comparison is available.; Findings:; Chest: The visualized lung bases are clear.; Abdomen: The liver, spleen, pancreas, kidneys, gallbladder, and adrenal glands are unremarkable. The; aorta is within normal limits. There is no evidence of abdominal lymphadenopathy or ascites. The midl; ine surgical wound at the region of the umbilicus is noted with a tiny amount of fluid. No evidence o; f the dehiscience is appreciated. No discrete mass or loculated fluid collection is identified. There; is a tiny area of low attenuation within the midline rectal sheath in the lower abdomen measuring up; to 3.7 x 1.1 cm, likely representing postsurgical hematoma.; Pelvis: Moderate amount of stool fills the colon.The bowel is otherwise unremarkable, with no obstruc; tive or inflammatory changes. The appendix is normal. The urinary bladder is within normal limits. Th; e other pelvic structures appear grossly intact. There is no evidence of pelvic lymphadenopathy or as; cites.; Bones: There are no suspicious osseous abnormalities seen.; Impression:; 1. Normal postsurgical changes demonstrated in the midline of the abdomen. Small postsurgical low att; enuation collections are consistent with normal hematomas. No evidence of dehiscience. No evidence of; abscess. Surgical clips are seen anteriorly.; 2. Mild constipation. No obstructive or inflammatory bowel changes.; ; ; Outcome: 22:00 Discharge ordered by Provider. ck7 22:09 Discharge Assessment: patient administered narcotics - no. The following High Risk rs3 Discharge criteria are identified: None. Discharged to home with friend. Condition: stable. Discharge instructions given to patient, Instructed on discharge instructions, follow up and referral plans. medication usage, Demonstrated understanding of instructions, medications, Pt was receptive of discharge instructions/ teaching. Prescriptions given X 1. CT Study completed. Property :Personal belongings accompany Pt. 22:11 Patient left the ED. rs3 Addendum: 05/27/2016 10:07 Narrative: wound culture results reviewed with Dr. Rios and no change in treatment kcs needed. Signatures: Dispatcher [facility] Fide Choi RN RN Stefany Schwarz, Reg Reg gb Enrique Burnham, RN RN dy Chao Alvarez Rosemary,JEFF RN rs3 Urszula Méndez, UTILITY SYSTEMS REPAIRER OPERATOR UTILITY SYSTEMS REPAIRER OPERATOR ar3 Julio C Steel, RPA-C RPA-Cck7 Shirley Macedo RN RN ttGloria Lao, Skein Straightener Unit [facility] Luis Manuel Rod, UTILITY SYSTEMS REPAIRER OPERATOR UTILITY SYSTEMS REPAIRER OPERATOR jrd Chart Complete MTDD
--- NOTE | 2016-05-27 10:35 | EDDOCDS ---
Physician Documentation [facility] Name: Malcolm Perez Age: 25 yrs Sex: Male : 1990 Arrival Date: 05/23/2016 Time: 17:44 Bed I5 / M5 Private MD: Andrey Molina [facility] Disposition: 05/23/16 22:00 Discharged to Home/Self Care. Impression: Disruption of wound, unspecified - STAPLE LINE DEHISCENCE, Cellulitis, unspecified. - Condition is Stable. - Discharge Instructions: Cellulitis, Wound Dehiscence. - Prescriptions for Keflex 500 mg Oral Capsule - take 1 capsule by ORAL route every 6 hours for 10 days; 40 capsule. - Medication Reconciliation, Local Pharmacy Hours form. - Follow up: Private Physician; When: Tomorrow; Reason: Recheck today's complaints, Continuance of care. - Problem is new. - Symptoms have improved. - Notes: FOLLOW UP WITH DR UGALDE TOMORROW PREVIOUSLY INSTRUCTED, USE KELFEX INSTRUCTED, RETURN TO THE ER IF THE SYMPTOMS WORSE OR BECOME CONCERNING Historical: - Allergies: Lortab; - Home Meds: 1. morphine 30 mg Oral cap as needed pt has been using approx 2 x/day for Severe Pain (Last dose: 05/23/2016 17:15) 2. Colace 100 mg oral cap once daily (Last dose: 05/23/2016) 3. ibuprofen 400 mg Oral tab (Last dose: 05/22/2016) - PMHx: colon CA; - PSHx: ostomy reversal; colectomy?; - Social history: Smoking status: Patient states was never smoker of tobacco. Patient/guardian denies using alcohol, street drugs, No barriers to communication noted, The patient speaks fluent Nigerien, Speaks appropriately for age. - Family history: Not pertinent. - : The pt / caregiver states he / she is not on anticoagulants. Home medication list is obtained from the patient. - Exposure Risk Screening:: None identified. Vital Signs: 05/23 17:49 BP 158 / 73 RA Sitting (auto/reg); Pulse 89; Resp 18; Temp 98.2; Pulse Ox 97% on R/A; jrd Weight 79.83 kg / 176 lbs (R); Height 5 ft. 11 in. (180.34 cm) (R); Pain 3/10; 22:10 BP 125 / 78; Pulse 78; Resp 18; Temp 98(T); Pulse Ox 99% on R/A; Pain 0/10; rs3 17:49 Body Mass Index 24.55 (79.83 kg, 180.34 cm) jrd MDM: 18:27 -Blood Culture (Adults Only), peripheral from different site, or from device/port/PICC ck7 etc. if present ordered. 18:27 IV Saline Lock ordered. ck7 18:27 NS 0.9% 1000 ml IV at bolus once ordered. ck7 18:28 CBC with Diff Ordered. EDMS 18:28 MED Profile Ordered. EDMS 18:28 -Blood Culture Ordered. EDMS 18:28 Wound Culture - All Other Sources Ordered. EDMS 18:28 CT ABD & PELVIS: IV and Oral Contrast Ordered. EDMS 18:28 -Blood Culture (Adults Only), peripheral from different site, or from device/port/PICC ar3 etc. if present complete. 18:30 BLOOD CULTURES Ordered. EDMS 18:37 Diatrizoate Meglumine & Sodium Liquid 10 ml PO once; mix in 290cc of water, 1st cup \T\ rs3 6.50 pm 2nd cup \T\7.20pm ordered. 19:45 Financial registration complete. zo 20:10 [facility] Payment Agreement was scanned into iSentium and attached to record. zo 21:14 CBC with Diff Reviewed. ck7 21:14 MED Profile Reviewed. ck7 21:41 CT ABD & PELVIS: IV and Oral Contrast Reviewed. ck7 21:41 Cephalexin 500 mg PO once ordered. ck7 21:42 Dressing ordered. ck7 05/24 09:15 T-Sheet-- Draft Copy was scanned into [employer]Sentium and attached to record. gb Administered Medications: 05/23 18:43 Drug: NS 0.9% 1000 ml [sodium chloride 0.9 % intravenous solution] Route: IV; Rate: rs3 bolus; Site: left antecubital; 18:43 Drug: Diatrizoate Meglumine & Sodium 10 ml [diatrizoate meglumine and diat.sodium 66 rs3 %-10 % oral solution (10 mL)] Route: PO; 21:56 Drug: Cephalexin 500 mg [cephalexin 250 mg capsule (2 caps)] Route: PO; rs3 Signatures: Dispatcher [employer] EDMS Stefany Rivers, Reg Reg gb Antonio, Nelsy Christy,RN RN rs3 Urszula Méndez, RATE CLERK RATE CLERK ar3 Julio C Steel, RPA-C RPA-Cck7 Shirley Macedo RN RN ttb The chart was reviewed and I authenticate all verbal orders and agree with the evaluation and treatment provided.Attachments: 20:10 [facility] [place] Agreement zo 05/24 09:15 T-Sheet-- Draft Copy gb Chart Complete MTDD
--- NOTE | 2016-05-27 10:35 | EDDOCDS ---
Physician Documentation [facility] Name: Malcolm Perez Age: 25 yrs Sex: Male : 1990 Arrival Date: 05/23/2016 Time: 17:44 Bed I5 / M5 Private MD: Andrey Molina [facility] Disposition: 05/23/16 22:00 Discharged to Home/Self Care. Impression: Disruption of wound, unspecified - STAPLE LINE DEHISCENCE, Cellulitis, unspecified. - Condition is Stable. - Discharge Instructions: Cellulitis, Wound Dehiscence. - Prescriptions for Keflex 500 mg Oral Capsule - take 1 capsule by ORAL route every 6 hours for 10 days; 40 capsule. - Medication Reconciliation, Local Pharmacy Hours form. - Follow up: Private Physician; When: Tomorrow; Reason: Recheck today's complaints, Continuance of care. - Problem is new. - Symptoms have improved. - Notes: FOLLOW UP WITH DR UGALDE TOMORROW PREVIOUSLY INSTRUCTED, USE KELFEX INSTRUCTED, RETURN TO THE ER IF THE SYMPTOMS WORSE OR BECOME CONCERNING Historical: - Allergies: Lortab; - Home Meds: 1. morphine 30 mg Oral cap as needed pt has been using approx 2 x/day for Severe Pain (Last dose: 05/23/2016 17:15) 2. Colace 100 mg oral cap once daily (Last dose: 05/23/2016) 3. ibuprofen 400 mg Oral tab (Last dose: 05/22/2016) - PMHx: colon CA; - PSHx: ostomy reversal; colectomy?; - Social history: Smoking status: Patient states was never smoker of tobacco. Patient/guardian denies using alcohol, street drugs, No barriers to communication noted, The patient speaks fluent Slovak, Speaks appropriately for age. - Family history: Not pertinent. - : The pt / caregiver states he / she is not on anticoagulants. Home medication list is obtained from the patient. - Exposure Risk Screening:: None identified. Vital Signs: 05/23 17:49 BP 158 / 73 RA Sitting (auto/reg); Pulse 89; Resp 18; Temp 98.2; Pulse Ox 97% on R/A; jrd Weight 79.83 kg / 176 lbs (R); Height 5 ft. 11 in. (180.34 cm) (R); Pain 3/10; 22:10 BP 125 / 78; Pulse 78; Resp 18; Temp 98(T); Pulse Ox 99% on R/A; Pain 0/10; rs3 17:49 Body Mass Index 24.55 (79.83 kg, 180.34 cm) jrd MDM: 18:27 -Blood Culture (Adults Only), peripheral from different site, or from device/port/PICC ck7 etc. if present ordered. 18:27 IV Saline Lock ordered. ck7 18:27 NS 0.9% 1000 ml IV at bolus once ordered. ck7 18:28 CBC with Diff Ordered. EDMS 18:28 MED Profile Ordered. EDMS 18:28 -Blood Culture Ordered. EDMS 18:28 Wound Culture - All Other Sources Ordered. EDMS 18:28 CT ABD & PELVIS: IV and Oral Contrast Ordered. EDMS 18:28 -Blood Culture (Adults Only), peripheral from different site, or from device/port/PICC ar3 etc. if present complete. 18:30 BLOOD CULTURES Ordered. EDMS 18:37 Diatrizoate Meglumine & Sodium Liquid 10 ml PO once; mix in 290cc of water, 1st cup \T\ rs3 6.50 pm 2nd cup \T\7.20pm ordered. 19:45 Financial registration complete. zo 20:10 [facility] Payment Agreement was scanned into Can[employer] and attached to record. zo 21:14 CBC with Diff Reviewed. ck7 21:14 MED Profile Reviewed. ck7 21:41 CT ABD & PELVIS: IV and Oral Contrast Reviewed. ck7 21:41 Cephalexin 500 mg PO once ordered. ck7 21:42 Dressing ordered. ck7 05/24 09:15 T-Sheet-- Draft Copy was scanned into Canonical and attached to record. gb Administered Medications: 05/23 18:43 Drug: NS 0.9% 1000 ml [sodium chloride 0.9 % intravenous solution] Route: IV; Rate: rs3 bolus; Site: left antecubital; 18:43 Drug: Diatrizoate Meglumine & Sodium 10 ml [diatrizoate meglumine and diat.sodium 66 rs3 %-10 % oral solution (10 mL)] Route: PO; 21:56 Drug: Cephalexin 500 mg [cephalexin 250 mg capsule (2 caps)] Route: PO; rs3 Signatures: Dispatcher [employer] EDMS Stefany Rivers, Reg Reg gb Antonio, Nelsy Christy,RN RN rs3 Urszula Méndez, BROOMMAKING SUPERVISOR BROOMMAKING SUPERVISOR ar3 Julio C Steel, RPA-C RPA-Cck7 Shirley Macedo RN RN ttb The chart was reviewed and I authenticate all verbal orders and agree with the evaluation and treatment provided.Attachments: 20:10 [facility] [place] Agreement zo 05/24 09:15 T-Sheet-- Draft Copy gb Chart Complete MTDD
--- NOTE | 2016-05-27 10:35 | EDDOCDS ---
Nurse's Notes [facility] Name: Malcolm Perez Age: 25 yrs Sex: Male : 1990 Arrival Date: 05/23/2016 Time: 17:44 Bed I5 / M5 Private MD: Andrey Molina [facility] Diagnosis: Disruption of wound, unspecified-STAPLE LINE DEHISCENCE;Cellulitis, unspecified Presentation: 05/23 17:52 Presenting complaint: Patient states: abd surgery at [place] on 05/06 -- discharged from [facility] approx 2 weeks ago -- 1st f/u tomorrow in office. Pt concerned with the appearance of lloyd at this time. States there is discharge. Adult Sepsis Screening: The patient does not have new or worsening altered mentation. Patient's respiratory rate is less than 22. Systolic blood pressure is greater than 100. Patient has a qSOFA score of 0- Negative Sepsis Screen. Suicide/Homicide risk assessment- the patient denies having any suicidal and/or homicidal ideations and does not present with any other emotional, behavioral or mental health complaints. 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 Transition of care: patient was not received from another setting of care. 17:52 Acuity: BRUNILDA Level 3 ttb 17:52 Method Of Arrival: Walkin/Carried/Asstd ttb 18:05 Presenting complaint: upon inspection, small area noted distal to umbilicus with fluid ttb filled sac. Approx 1cm. Fluid appears clear mainly. Surrounding tissue appears healthy, no erythema noted. Triage Assessment: 17:58 General: Appears in no apparent distress, well nourished, well groomed, Behavior is ttb appropriate for age, cooperative, flat, pleasant, quiet. Pain: Location: abd 06/04. HIV screening NA for this visit Offered previously. Neurological: Level of Consciousness is awake, alert. Cardiovascular: Chest pain is denied. Respiratory: No deficits noted. Airway is patent Respiratory effort is even, unlabored. GI: other pt states large surgical incision to abd Reports tolerance of food, tolerance of fluids, Denies vomiting. Derm: Skin is normal. Injury Description: surgical site. Historical: - Allergies: Lortab; - Home Meds: 1. morphine 30 mg Oral cap as needed pt has been using approx 2 x/day for Severe Pain (Last dose: 05/23/2016 17:15) 2. Colace 100 mg oral cap once daily (Last dose: 05/23/2016) 3. ibuprofen 400 mg Oral tab (Last dose: 05/22/2016) - PMHx: colon CA; - PSHx: ostomy reversal; colectomy?; - Social history: Smoking status: Patient states was never smoker of tobacco. Patient/guardian denies using alcohol, street drugs, No barriers to communication noted, The patient speaks fluent Israeli, Speaks appropriately for age. - Family history: Not pertinent. - : The pt / caregiver states he / she is not on anticoagulants. Home medication list is obtained from the patient. - Exposure Risk Screening:: None identified. Screenin:52 Screening information is obtained from the patient. Fall risk: No risks identified. dy Assistance ADL's: requires no assistance with activities of daily living. Abuse/DV Screen: The patient / caregiver reports he/she is: not in a situation that causes fear, pain or injury. Nutritional screening: No deficits noted. Advance Directives: Currently, there is no health care proxy. home support is adequate. Assessment: 18:50 General: Appears in no apparent distress, Behavior is appropriate for age, cooperative. dy Pain: Location: abdomen Pain currently is 3 out of 10 on a pain scale. Neurological: No deficits noted. Respiratory: Airway is patent Respiratory effort is even, unlabored. GI: Abdomen is flat, non- distended midline surgical scar stapled full length of abdomen into suprapubic area. purulent drainage noted just below umbilicus. left lower 7.5-10 cm stapled surgical wound without redness or drainage noted. 19:58 General: Appears in no apparent distress, Behavior is appropriate for age, cooperative, rs3 sits up on stretcher texting on his phone. denies of acute distress/pain. waiting for CT scan. completed oral contrast. tolerating well. IVF NS bolus infusing. 20:44 General: Appears in no apparent distress, Behavior is appropriate for age, cooperative, rs3 patient returned from CT. tolerated procedure well. waiting on test results. . 21:56 General: Appears in no apparent distress, resting comfortable. denies of pain/distress. rs3 friend at bedside. wet dressing applied. . 22:09 Reassessment: Patient appears in no apparent distress at this time. Patient denies pain rs3 at this time. Patient states feeling better. Patient states symptoms have improved. Vital Signs: 17:49 BP 158 / 73 RA Sitting (auto/reg); Pulse 89; Resp 18; Temp 98.2; Pulse Ox 97% on R/A; jrd Weight 79.83 kg (R); Height 5 ft. 11 in. (180.34 cm) (R); Pain 3/10; 22:10 BP 125 / 78; Pulse 78; Resp 18; Temp 98(T); Pulse Ox 99% on R/A; Pain 0/10; rs3 17:49 Body Mass Index 24.55 (79.83 kg, 180.34 cm) [facility] Vitals: 17:49 Log In Time: May 23, 2016 at 17:44. [facility] ED Course: 17:46 Patient visited by Luis Manuel Rod PCA. jrd 17:46 Patient moved to Waiting jrd 17:48 [place], [facility] is Private Physician. jrd 17:50 Patient visited by Luis Manuel Rod PCA. jrd 17:50 Patient moved to Pre RCE jrd 17:54 Triage Initiated ttb 17:59 Patient moved to Triage 3 ttb 18:15 [facility] C Steel [facility] ck7 18:15 Arturo Lowe MD is Attending Physician. ck7 18:15 Patient visited by Julio C Steel RPA-C. ck7 18:29 Patient moved to I5 / M5 ar3 18:41 The patient / caregiver is instructed regarding the plan of care and ED course. Patient dy has correct armband on for positive identification. Placed in gown. Bed in low position. Call light in reach. Side rails up X 1. 18:41 Wound Culture - All Other Sources Sent. dy 18:41 -Blood Culture Sent. dy 18:41 MED Profile Sent. dy 18:41 CBC with Diff Sent. dy 18:41 Inserted saline lock: 20 gauge in left antecubital area and blood collected. The dy patient tolerated the procedure well. Labs/Blood culture drawn Wound culture sent to lab. 18:44 BLOOD CULTURES Sent. jlm 18:47 Patient visited by Gloria Cope, Per Diem Clerk. jl 19:23 Patient visited by Julio C Steel RPA-C. ck7 19:57 Patient visited by Julio C Steel RPA-C. ck7 20:10 [facility] Payment Agreement was scanned into H[employer]ING[employer] and attached to record. zo 20:44 Patient visited by Nelsy Diamond RN. rs3 21:14 Patient visited by Julio C Steel RPA-C. ck7 21:25 CT ABD & PELVIS: IV and Oral Contrast Returned. EDMS 22:00 Patient visited by Nelsy Diamond RN. rs3 22:10 Discontinued lock bleeding controlled, pressure dressing applied, No redness/swelling rs3 at site. No procedures done that require assistance. 05/24 09:15 T-Sheet-- Draft Copy was scanned into [employer] and attached to record. gb Administered Medications: 05/23 18:43 Drug: NS 0.9% 1000 ml [sodium chloride 0.9 % intravenous solution] Route: IV; Rate: rs3 bolus; Site: left antecubital; 18:43 Drug: Diatrizoate Meglumine & Sodium 10 ml [diatrizoate meglumine and diat.sodium 66 rs3 %-10 % oral solution (10 mL)] Route: PO; 21:56 Drug: Cephalexin 500 mg [cephalexin 250 mg capsule (2 caps)] Route: PO; rs3 Order Results: Lab Order: CBC with Diff; SPEC'M 05/23/16 18:32 Test: WHITE BLOOD COUNT; Value: 7.2; Range: 4.0-10.0; Units: K/mm3; Status: F Test: RED BLOOD COUNT; Value: 4.53; Range: 4.30-6.10; Units: M/mm3; Status: F Test: HEMOGLOBIN; Value: 12.6; Range: 14.0-18.0; Abnormal: Below low normal; Units: g/dl; Status: F Test: HEMATOCRIT; Value: 39.1; Range: 42.0-52.0; Abnormal: Below low normal; Units: %; Status: F Test: MEAN CORPUSCULAR VOLUME; Value: 86.2; Range: 80.0-96.0; Units: fl; Status: F Test: MEAN CORPUSCULAR HEMOGLOBIN; Value: 27.8; Range: 27.0-33.0; Units: pg; Status: F Test: MEAN CORPUSCULAR HGB CONC; Value: 32.2; Range: 32.0-36.5; Units: g/dl; Status: F Test: RED CELL DISTRIBUTION WIDTH; Value: 14.2; Range: 11.5-14.5; Units: %; Status: F Test: PLATELET COUNT, AUTOMATED; Value: 676; Range: 150-450; Abnormal: Above high normal; Units: k/mm3; Status: F Test: NEUTROPHILS %; Value: 77.6; Range: 36.0-66.0; Abnormal: Above high normal; Units: %; Status: F Test: LYMPH %; Value: 16.0; Range: 24.0-44.0; Abnormal: Below low normal; Units: %; Status: F Test: MONO %; Value: 3.2; Range: 0.0-5.0; Units: %; Status: F Test: EOS %; Value: 1.2; Range: 0.0-3.0; Units: %; Status: F Test: BASO %; Value: 0.4; Range: 0.0-1.0; Units: %; Status: F Test: LARGE UNSTAINED CELL %; Value: 1.6; Range: 0.0-4.0; Units: %; Status: F Test: NEUTROPHILS #; Value: 5.6; Range: 1.8-7.7; Units: K/mm3; Status: F Test: LYMPH #; Value: 1.2; Range: 1.5-6.5; Abnormal: Below low normal; Units: K/mm3; Status: F Test: MONO #; Value: 0.2; Range: 0.0-0.8; Units: K/mm3; Status: F Test: EOS #; Value: 0.1; Range: 0.0-0.50; Units: K/mm3; Status: F Test: BASO #; Value: 0.0; Range: 0.0-0.2; Units: K/mm3; Status: F Test: LARGE UNSTAINED CELL #; Value: 0.1; Range: 0.0-0.4; Units: K/mm3; Status: F Lab Order: MED Profile; SPEC'M 05/23/16 18:32 Test: GLUCOSE, FASTING; Value: 92; Range: 70-105; Units: MG/DL; Status: F Test: BLOOD UREA NITROGEN; Value: 11; Range: 7-18; Units: MG/DL; Status: F Test: CREATININE FOR GFR; Value: 0.86; Range: 0.70-1.30; Units: MG/DL; Status: F Test: GLOMERULAR FILTRATION RATE; Value: > 60.0; Range: >60; Status: F Test: SODIUM LEVEL; Value: 141; Range: 136-145; Units: MEQ/L; Status: F Test: POTASSIUM SERUM; Value: 4.3; Range: 3.5-5.1; Units: MEQ/L; Status: F Test: CHLORIDE LEVEL; Value: 101; Range: 98-107; Units: MEQ/L; Status: F Test: CARBON DIOXIDE LEVEL; Value: 31; Range: 21-32; Units: MEQ/L; Status: F Test: ANION GAP; Value: 9; Range: 8-16; Units: MEQ/L; Status: F Test: CALCIUM LEVEL; Value: 9.1; Range: 8.5-10.1; Units: MG/DL; Status: F Test Note: ; Units are mL/min/1.73 m2 Chronic Kidney Disease Staging per NKF: Stage I & II GFR >=60 Normal to Mildly Decreased Stage III GFR 30-59 Moderately Decreased Stage IV GFR 15-29 Severely Decreased Stage V GFR <15 Very Little GFR Left ESRD GFR <15 on LAB INSTRUCTOR Lab Order: -Blood Culture; SPEC'M 05/23/16 18:32 Test: BLOOD CULTURE; Value: No growth after 48 hours . All specimens observed; Status: F Test: BLOOD CULTURE; Value: for 5 days. Results final at that time.; Status: F Test: BLOOD CULTURE; Status: F Test: BLOOD CULTURE; Value: No growth after 24 hours . All specimens observed; Status: F Test: BLOOD CULTURE; Value: for 5 days. Results final at that time.; Status: F Test: BLOOD CULTURE; Value: No Growth after 72 hours. All specimens observed; Status: F Test: BLOOD CULTURE; Value: for 7 days. Results final at that time.; Status: F Lab Order: Wound Culture - All Other Sources; SPEC'M 05/23/16 18:32 Test: WOUND CULTURE; Value: <EXTERNAL COMMENT eCWMed> FULL REPORT IN LAB NOTES (eCW and Medent).; Status: F Test: WOUND CULTURE; Value: ORGANISM 1: STAPHYLOCOCCUS AUREUS; Status: F Test: WOUND CULTURE; Value: STAPHYLOCOCCUS AUREUS; Status: F Test: WOUND CULTURE; Value: QUANTITY OF GROWTH HEAVY; Status: F Test: WOUND CULTURE; Value: GRAM POS SENSI - VITEK 67; Status: F Test: WOUND CULTURE; Value: Method: VIT2; Status: F Test: WOUND CULTURE; Value: TETRACYCLINE <=1 S; Status: F Test: WOUND CULTURE; Value: PENICILLIN G >=0.5 R; Status: F Test: WOUND CULTURE; Value: TRIMETHOPRIM/SULFAMETHOXAZOLE <=10 S; Status: F Test: WOUND CULTURE; Value: ERYTHROMYCIN <=0.25 S; Status: F Test: WOUND CULTURE; Value: GENTAMICIN <=0.5 S; Status: F Test: WOUND CULTURE; Value: CLINDAMYCIN <=0.25 S; Status: F Test: WOUND CULTURE; Value: OXACILLIN <=0.25 S; Status: F Test: WOUND CULTURE; Value: VANCOMYCIN 1 S; Status: F Test: WOUND CULTURE; Value: LINEZOLID (ZYVOX) 2 S; Status: F Lab Order: BLOOD CULTURES; SPEC'M 05/23/16 18:33 Test: BLOOD CULTURE; Value: No growth after 48 hours . All specimens observed; Status: F Test: BLOOD CULTURE; Value: for 5 days. Results final at that time.; Status: F Test: BLOOD CULTURE; Status: F Test: BLOOD CULTURE; Value: No growth after 24 hours . All specimens observed; Status: F Test: BLOOD CULTURE; Value: for 5 days. Results final at that time.; Status: F Test: BLOOD CULTURE; Value: No Growth after 72 hours. All specimens observed; Status: F Test: BLOOD CULTURE; Value: for 7 days. Results final at that time.; Status: F Radiology Order: CT ABD & PELVIS: IV and Oral Contrast Test: CT ABD & PELVIS: IV and Oral Contrast REASON FOR EXAMINATION: WOUND DEHISCENSE R/O ABSCESS; ; CT of the abdomen and pelvis with contrast; Clinical statement: wound dehiscience.; Technique: Multiple axial CT images were obtained from the base of the lungs through the floor of the; pelvis utilizing 5 mm axial slices after administration of oral and nonionic intravenous contrast. C; oronal and sagittal reconstructions were also obtained.; No comparison is available.; Findings:; Chest: The visualized lung bases are clear.; Abdomen: The liver, spleen, pancreas, kidneys, gallbladder, and adrenal glands are unremarkable. The; aorta is within normal limits. There is no evidence of abdominal lymphadenopathy or ascites. The midl; ine surgical wound at the region of the umbilicus is noted with a tiny amount of fluid. No evidence o; f the dehiscience is appreciated. No discrete mass or loculated fluid collection is identified. There; is a tiny area of low attenuation within the midline rectal sheath in the lower abdomen measuring up; to 3.7 x 1.1 cm, likely representing postsurgical hematoma.; Pelvis: Moderate amount of stool fills the colon.The bowel is otherwise unremarkable, with no obstruc; tive or inflammatory changes. The appendix is normal. The urinary bladder is within normal limits. Th; e other pelvic structures appear grossly intact. There is no evidence of pelvic lymphadenopathy or as; cites.; Bones: There are no suspicious osseous abnormalities seen.; Impression:; 1. Normal postsurgical changes demonstrated in the midline of the abdomen. Small postsurgical low att; enuation collections are consistent with normal hematomas. No evidence of dehiscience. No evidence of; abscess. Surgical clips are seen anteriorly.; 2. Mild constipation. No obstructive or inflammatory bowel changes.; ; ; Outcome: 22:00 Discharge ordered by Provider. ck7 22:09 Discharge Assessment: patient administered narcotics - no. The following High Risk rs3 Discharge criteria are identified: None. Discharged to home with friend. Condition: stable. Discharge instructions given to patient, Instructed on discharge instructions, follow up and referral plans. medication usage, Demonstrated understanding of instructions, medications, Pt was receptive of discharge instructions/ teaching. Prescriptions given X 1. CT Study completed. Property :Personal belongings accompany Pt. 22:11 Patient left the ED. rs3 Addendum: 05/27/2016 10:07 Narrative: wound culture results reviewed with Dr. Rios and no change in treatment kcs needed. Signatures: Dispatcher [facility] Fide Choi RN RN Stefany Schwarz, Reg Reg gb Enrique Burnham, RN RN dy Chao Alvarez Rosemary,JEFF RN rs3 Urszula Méndez, BODY MECHANIC BODY MECHANIC ar3 Julio C Steel, RPA-C RPA-Cck7 Shirley Macedo RN RN ttGloria Lao, Per Diem Clerk Unit [facility] Luis Manuel Rod, BODY MECHANIC BODY MECHANIC jrd Chart Complete MTDD
== END 2016-05-23 22:11 | disposition home or self-care (01) ==
LOC: M ED 17:44
DX: T81.30XA Disruption of wound, unspecified, initial encounter (principal); Z98.890 Other specified postprocedural states; L03.311 Cellulitis of abdominal wall; Z85.038 Personal history of other malignant neoplasm of large intestine; Z88.5 Allergy status to narcotic agent
CPT/HCPCS: 36415; 74177; 80048; 85025; 87040; 87070; 87077; 87186; 99284; Q9963; Q9967